=== PATIENT | female | born 1960 | race Caucasian/White ===

== ENCOUNTER → 2019-07-07 14:29 | Outpatient (CLI) | payer OTHER, SELFPAY ==
--- NOTE | ~2019-07-07 | MM_ITS ---
EXAMINATION: MM screening yeison BI w lauren HISTORY: Screening mammogram TECHNIQUE: Craniocaudal and mediolateral oblique 3-D tomosynthesis images were obtained and synthetic 2-D images were generated. CAD analysis was submitted and interpreted. COMPARISON: No prior mammogram is available for comparison at this institution. BREAST PARENCHYMAL COMPOSITION: There are scattered areas of fibroglandular density. FINDINGS: There is no evidence of suspicious mass, calcification, or architectural distortion to sugg est malignancy in either breast. There has been no suspicious interval change. IMPRESSION: 1. No mammographic evidence of malignancy. 2. Recommend routine screening mammography in one year. BI-RADS Category 1: Negative Reviewed, dictated and finalized at location A.
== END ==
PROVIDERS: PCP Family Medicine; Visit Provider Family Medicine
DX: Z12.31 Encounter for screening mammogram for malignant neoplasm of breast (principal)
CPT/HCPCS: 77063; 77067

== ENCOUNTER 2020-03-30 02:02 | Outpatient (CLI) | payer OTHER, SELFPAY ==
[2020-03-30 18:46] LABS: SARS-CoV-2 RNA PCR Negative
== END 2020-03-30 02:03 | disposition home or self-care (01) ==
LOC: ANHCOVIDDT 02:03
PROVIDERS: PCP Family Medicine; Visit Provider Internal Medicine Gastroenterology
DX: Z20.828 Contact with and (suspected) exposure to other viral communicable diseases (principal)
CPT/HCPCS: 87635; C9803; U0003

== ENCOUNTER 2020-04-02 00:43 | Day surgery (SDC) | payer OTHER, SELFPAY ==
[2020-03-26 08:32] VITALS: BMI 26.9
[2020-04-02 10:09] VITALS: BP 128/88; PULSE 73; RESP 20; TEMP 36.7; O2SAT 98; BMI 26.9
[2020-04-02] MEDS: LACTATED RINGERS 1,000 ML 150 ML IV CONT (10:24)
--- NOTE | 2020-04-02 10:46 | WPDANESEPPF ---
Anes - Initial Pre Proc Eval Procedure: Operation Date: 04/02/20 11:00 Proposed Procedures p Screening Colonoscopy - Kvng Freeman MD Date/Time: 04/02/20 10:46 Surgeon: Kvng Freeman MD Pre Op Diagnosis: neoplasm screening Patient Data Age: 59 Gender: F Height: 5 ft 7 in Weight: 78 kg Last Vital Signs Temp 36.7 C 04/02/20 10:09 Pulse 73 04/02/20 10:09 Resp 20 04/02/20 10:09 BP 128/88 04/02/20 10:09 Pulse Ox 98 04/02/20 10:09 Allergies Allergy/AdvReac Type Severity Reaction Status Date / Time No Known Allergies Allergy Verified 04/02/20 10:08 Home Medications Medication Instructions Recorded Confirmed Type peg 3350-electrolytes 236 240 ml PO Q10M #4000 ml 02/14/20 Rx gram-22.74 gram-6.74 gram-5.86 gram solution sodium,potassium,mag sulfates 17.5 See Rx Instructions PO .COMPLEX 02/27/20 Rx gram-3.13 gram-1.6 gram oral soln #354 ml triamcinolone acetonide 1 applic TOPICAL BID PRN 03/26/20 03/26/20 History Patient hx anesthesia problems: none Family hx anesthesia problems: none PMFSH Past Medical History Medical History Chronic neck and back pain Eczema Essential (primary) hypertension controlled after losing weight History of colon polyps Major depressive disorder, recurrent episode, unspecified Surgical History Surgical History History of cholecystectomy 06/2001 Family History Family History Father Family history of lung cancer, Onset Age: 73 Mother Family history of coronary artery disease, Onset Age: 63 Social History Social History Smoking status: Never smoker Second hand tobacco smoke exposure: No Alcohol intake: current Substance use: never Substance use type: does not use Living arrangements: alone Spiritual care concerns: No Anes - Eval Final PreProcedure Day of Procedure 04/02/20 10:46 Patient weight: overweight Heart: regular rate and rhythm Lungs: clear to auscultation Airway: Mallampati scale class II Neurological: alert and oriented Last oral intake: >/= 8 hours ASA classification: II Emergent: no Anesthetic plan: proceed Anesthesia type and monitoring: general GIVS and standard monitoring Informed Consent: The patient's anesthetic plan and its attendant risks and benefits were discussed with the patient/family/POA. Questions were solicited and answers provided to the satisfaction of the patient/family/POA.
--- NOTE | 2020-04-02 11:45 | PM.HPGS ---
History of Present Illness History of Present Illness Consent: Risks, benefits, and alternatives have been discussed and questions answered. Patient agrees to proceed with procedure. Chief complaint: neoplasm screening Narrative: Farnaz Stoner is a 59 year old female here for screening colonoscopy, last one 2013 Review of Systems Constitutional: Constitutional: Denies headache(s) and Denies weakness Eyes: Eyes: Denies blurry vision ENT: Reports Normal hearing present, Denies headache(s) and Denies neck pain Cardiovascular: Cardiovascular: Denies chest pain and Denies dyspnea Respiratory: Respiratory: Denies dyspnea Gastrointestinal: Gastrointestinal: Reports no additional gastrointestinal complaints Genitourinary: Genitourinary: Denies dysuria Musculoskeletal: Musculoskeletal: Denies neck pain Integumentary/Breasts: Skin/Breast: Denies dry skin Neurologic: Reports Normal hearing present, Denies headache(s) and Denies weakness Psychiatric: Psychiatric: Denies anxiety Endocrine: Endocrine: Denies change in body appearance Hematologic/Lymphatic: Hematologic/Lymphatic: Denies easy bleeding Allergic/Immunologic: Allergic/Immunologic: Denies urticaria PMFSH Past Medical History Medical History Chronic neck and back pain Eczema Essential (primary) hypertension controlled after losing weight History of colon polyps Major depressive disorder, recurrent episode, unspecified Surgical History Surgical History History of cholecystectomy 06/2001 Family History Family History Father Family history of lung cancer, Onset Age: 73 Mother Family history of coronary artery disease, Onset Age: 63 Social History Social History Smoking status: Never smoker Second hand tobacco smoke exposure: No Alcohol intake: current Substance use: never Substance use type: does not use Living arrangements: alone Spiritual care concerns: No Meds Home Medications and Allergies Home Medications Medication Instructions Recorded Confirmed Type peg 3350-electrolytes 236 240 ml PO Q10M #4000 ml 02/14/20 Rx gram-22.74 gram-6.74 gram-5.86 gram solution sodium,potassium,mag sulfates 17.5 See Rx Instructions PO .COMPLEX 02/27/20 Rx gram-3.13 gram-1.6 gram oral soln #354 ml triamcinolone acetonide 1 applic TOPICAL BID PRN 03/26/20 03/26/20 History Allergies Allergy/AdvReac Type Severity Reaction Status Date / Time No Known Allergies Allergy Verified 04/02/20 10:08 Vital Signs Vital Signs - 24 hr 04/02/20 10:09 Temperature 98.1 F Pulse Rate 73 Respiratory Rate 20 Blood Pressure 128/88 Pulse Oximetry 98 Exam Const: General: comfortable and no acute distress HENMT: General nose exam: Normal nares present Eyes: General: appearance normal, both eyes and all related structures Neck: Neck: no JVD Resp: Auscultation: clear to auscultation bilaterally Cardio: Rate: regular rate Rhythm: regular rhythm GI: Inspection: non-distended GI Palp: Yes Soft to palpation Skin: General skin exam: normal color Neuro: General: gait normal Speech: normal speech Extrem: General: normal to inspection Psych: Mental Status: mental status grossly normal Assessment and Plan Assessment and plan (1) Colon cancer screening: Code(s): Z12.11 - Encounter for screening for malignant neoplasm of colon Status: Acute Assessment and Plan: will proceed with colonoscopy
[2020-04-02 12:04] VITALS: BP 94/56; PULSE 71; RESP 21; O2SAT 99
[2020-04-02 12:14] VITALS: BP 102/62; PULSE 68; RESP 21; O2SAT 100
[2020-04-02 12:24] VITALS: BP 119/79; PULSE 70; RESP 21; O2SAT 100
== END 2020-04-02 12:34 | disposition home or self-care (01) ==
PROVIDERS: PCP Family Medicine; Visit Provider Internal Medicine Gastroenterology
PROC: 0DJD8ZZ Inspection of Lower Intestinal Tract, Via Natural or Artificial Opening Endoscopic (ICD-10-PCS; CPT 45378; principal; 2020-04-02 11:00)
DX: Z12.11 Encounter for screening for malignant neoplasm of colon (principal); D12.2 Benign neoplasm of ascending colon; L30.9 Dermatitis, unspecified; F32.9 Major depressive disorder, single episode, unspecified; Z90.49 Acquired absence of other specified parts of digestive tract; K64.8 Other hemorrhoids; K57.30 Diverticulosis of large intestine without perforation or abscess without bleeding
CPT/HCPCS: 45380; 88305; J2704; J7120

== ENCOUNTER → 2020-08-27 16:54 | Outpatient (CLI) | payer OTHER, SELFPAY ==
--- NOTE | ~2020-08-27 | MM_ITS ---
EXAMINATION: MM screening yeison BI w lauren HISTORY: Screening mammogram TECHNIQUE: Craniocaudal and mediolateral oblique 3-D tomosynthesis images were obtained and synthetic 2-D images were generated. CAD analysis was submitted and interpreted. COMPARISON: 07/07/2019 BREAST PARENCHYMAL COMPOSITION: The breasts are heterogeneously dense, which may obscure small masses . FINDINGS: RIGHT BREAST: There are grouped indeterminate calcifications in the posterior third of the upper oute r quadrant breast. An asymmetry is present in the middle third of the slightly outer breast on the cr aniocaudal view. LEFT BREAST: There is no evidence of suspicious mass, calcification, or architectural distortion to s uggest malignancy. There has been no significant interval change. IMPRESSION: 1. Right breast asymmetry and indeterminate right breast calcifications. 2. Additional mammographic views and possible breast ultrasound are recommended. BI-RADS Category 0: Incomplete: Needs additional imaging evaluation. Reviewed, dictated and finalized at location A. IMPRESSION: 1. Right breast asymmetry and indeterminate right breast calcifications. 2. Additional mammographic views and possible breast ultrasound are recommended . BI-RADS Category 0: Incomplete: Needs additional imaging evaluation.
== END ==
PROVIDERS: PCP Family Medicine
DX: Z12.31 Encounter for screening mammogram for malignant neoplasm of breast (principal); R92.8 Other abnormal and inconclusive findings on diagnostic imaging of breast
CPT/HCPCS: 77063; 77067

== ENCOUNTER → 2020-09-25 08:47 | Outpatient (CLI) | payer OTHER, SELFPAY ==
--- NOTE | ~2020-09-25 | MMUS_ITS ---
EXAMINATION: MM diagnostic mammo unilat RT, US breast RT complete HISTORY: Right breast asymmetry and indeterminate right breast calcifications reported on 08/27/2020 s creening mammogram examination TECHNIQUE: Additional 3-D tomosynthesis images of the right breast were performed and synthetic 2-D i mages were generated. Magnification views of right breast. CAD analysis was submitted and interpreted . High resolution complete right breast ultrasound was performed. COMPARISON: 08/27/2020, 07/07/2019 bilateral digital screening mammogram examinations FINDINGS: MAMMOGRAPHIC FINDINGS: A cluster grouped benign-appearing fibroadenoma-like microcalcifications is noted in the upper outer quadrant of the right breast posteriorly. Occasional benign microcalcifications are noted elsewhere. No suspicious microcalcifications are noted. Possible small mass and associated focal architectural distortion in the outer mid right breast (ML T omosynthesis image ). The heterogeneously dense stroma may obscure masses. Complete right breast ultrasound examination therefore was performed. ULTRASOUND: 9:00 4 cm from nipple: There is an irregular hypoechoic up to 3.4 mm mass. Ultrasound-guided biopsy i s recommended. 8:00 4.5 cm from nipple: Irregular antiparallel hypoechoic up to 5 mm deep 5 mm wide mass with Tornad o funnell cloud configuration and posterior shadowing is noted. Consecutive biopsy is recommended. Dense tissue is noted at 10:00 area without opacification of a focal mass lesion. IMPRESSION: 1. Suspicious hypoechoic sonographic masses at right breast 8:00 4.5 cm from nipple and 9:00 4 cm fro m nipple 2. Ultrasound-guided biopsy of right breast 8:00 and 9:[address] Menon telephoned the report and ultrasound guided biopsy recommendations on 09/25/2020 at 1005 hours to Rebecca Almaguer. Reviewed, dictated and finalized at location A. IMPRESSION: 1. Suspicious hypoechoic sonographic masses at right breast 8:00 4.5 cm from ni pple and 9:00 4 cm from nipple 2. Ultrasound-guided biopsy of right breast 8:00 and 9:[address] Menon telephoned the report and ultrasound guided biopsy recommendations on 09/25/2020 at 1005 hours to [facility].
== END ==
PROVIDERS: Visit Provider Nurse Practitioner Family
DX: N63.11 Unspecified lump in the right breast, upper outer quadrant (principal); R92.8 Other abnormal and inconclusive findings on diagnostic imaging of breast
CPT/HCPCS: 76641; 77065

== ENCOUNTER 2020-10-09 08:52 | Outpatient (CLI) | payer OTHER, SELFPAY ==
--- NOTE | ~2020-10-09 | MMUS_ITS ---
EXAMINATION: US GUIDED NEEDLE BIOPSY DATE: 10/09/2020 10:49 CDT INDICATION: Irregular hypoechoic lesions at 9:00 4 cm from nipple and 8:00 4.5 cm from nipple on 2020 20 right breast ultrasound examination TECHNIQUE AND FINDINGS: The risks and potential benefits of the procedure were discussed with the patient, and written inform ed consent was obtained. Timeout procedure was performed. After sterile preparation of the right debbie st, 1% lidocaine was utilized for local anesthesia. A 14G spring-loaded biopsy gun needle was advanced to the edge of each of 2 regions of interest (8:00 and 9:00) from a lateral approach utilizing sonographic guidance. A total of 5 tissue core samples were obtained through the 2 lesions. An Inrad tissue marker clip was then placed at each of the 2 bi opsy sites. Hemostasis was achieved. A sterile bandage was applied. The patient tolerated procedure well and there was no evidence of immediate complication. The patien t was given verbal instructions prior to departing from the department. A two view mammogram was perf ormed to document tissue marker clip placement. The tissue samples were submitted to surgical patholo gy for histologic analysis. IMPRESSION: 1. Successful ultrasound guided biopsy of right 8:00 and 9:00 breast masses with biopsy marker place ments. Please refer to pathology report for histologic analysis. Reviewed, dictated and finalized at Location A. Reviewed, dictated and finalized at location A. IMPRESSION: 1. Successful ultrasound guided biopsy of right 8:00 and 9:00 breast masses wi th biopsy marker placements. Please refer to pathology report for histologic an alysis. IMPRESSION: 1. Successful ultrasound guided biopsy of right 8:00 and 9:00 breast masses wi th biopsy marker placements. Please refer to pathology report for histologic an alysis.
== END 2020-10-09 08:53 | disposition home or self-care (01) ==
PROVIDERS: PCP Family Medicine; Visit Provider Nurse Practitioner Family
DX: C50.811 Malignant neoplasm of overlapping sites of right female breast (principal)
CPT/HCPCS: 19083; 19084; 88305; 88342; 88360; A4648

== ENCOUNTER → 2020-11-30 03:08 | Outpatient (CLI) | payer BC, SELFPAY ==
[2020-12-01 01:32] LABS: SARS-CoV-2 RNA PCR Negative
== END ==
PROVIDERS: PCP Family Medicine
DX: Z20.822 Contact with and (suspected) exposure to COVID-19 (principal); R09.89 Other specified symptoms and signs involving the circulatory and respiratory systems
CPT/HCPCS: C9803; U0003; U0005

== ENCOUNTER 2022-03-09 14:18 | Emergency (ER) | payer BC, SELFPAY ==
[2022-03-09 14:36] VITALS: BP 133/89; PULSE 84; RESP 16; TEMP 37.6; O2SAT 97
--- NOTE | 2022-03-09 14:58 | ED.EYEPROB ---
HPI - Eye Problem General Chief complaint: Eye Problems Stated complaint: rt eye irritation Time Seen by Provider: 03/09/22 14:48 Source: patient Mode of arrival: ambulatory Limitations: no limitations History of Present Illness HPI Narrative: Patient presents today complaining of right eye irritation and foreign body sensation since yesterday after she got a haircut. Denies vision changes, photophobia, drainage. She has used some [id number] eye drops without relief. She does not wear contacts or glasses Related Data Home Medications Medication Instructions Recorded Confirmed exemestane 25 mg tablet 25 mg PO DAILY 06/05/21 03/09/22 alendronate 70 mg tablet 70 mg PO WEEKLY 03/04/22 03/09/22 Allergies Allergy/AdvReac Type Severity Reaction Status Date / Time No Known Allergies Allergy Verified 03/09/22 14:34 Review of Systems Review of Systems: CONSTITUTIONAL: Denies body aches, fever, chills, or sweats. EYES: Denies visual changes, redness, or discharge.+ Right eye irritation and foreign body sensation ENT: Denies rhinorrhea, congestion, sore throat, or otalgia. CARDIOVASCULAR: Denies chest pain, palpitations, or edema. RESPIRATORY: Denies cough or dyspnea. GASTROINTESTINAL: Denies abdominal pain, nausea, vomiting, or diarrhea. GENITOURINARY: Denies dysuria or hematuria. SKIN: Denies rash, itching, or wounds. MUSCULOSKELETAL: Denies back pain, joint pain, or myalgia. NEUROLOGIC: Denies headache, numbness, tingling, or weakness. PSYCH: Denies depression or anxiety. [facility] Past Medical History Medical History Age related osteoporosis Chronic neck and back pain Eczema Essential (primary) hypertension History of colon polyps Invasive lobular carcinoma of breast, stage 1 Major depressive disorder, recurrent episode, unspecified Vitamin D deficiency Surgical History Surgical History History of cholecystectomy 06/2001 History of lumpectomy of right breast 11/2020 Family History Family History Father Family history of lung cancer, Onset Age: 73 Mother Family history of coronary artery disease, Onset Age: 63 Social History Social History Smoking status: Never smoker Second hand tobacco smoke exposure: No Alcohol intake: current Alcohol use details: socially Substance use: never Substance use type: does not use Lack of Transportation: No Lack of Food: Never True Current Housing: I Have Housing Concerned About Future Housing: No Difficulty Paying Gas/Electric Bills: No Difficulty Paying for Meds: No Currently Unemployed: No Education: Bachelor's Degree Difficulty w/ Childcare or Family Care: No 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 Please see nursing chart for further information. There is no relevant family history pertinent to the presenting complaint Exam Narrative: GENERAL: Well-appearing, well-nourished, and in no acute distress. HEAD: Normocephalic, atraumatic. EYES: EOMI. PERRL. right eye: Injected conjunctivae. Lids and lashes normal. See procedure note. left eye normal ENT: Mucous membranes pink and moist. NECK: Normal AROM. CHEST: No respiratory distress. EXTREMITIES: Normal range of motion. No edema. SKIN: Warm, dry, no rash. Capillary refill normal. Normal skin turgor. NEURO: No focal deficits. Alert and oriented x3. Gait steady. PSYCH: Normal affect.
== END 2022-03-09 15:10 | disposition home or self-care (01) ==
PROVIDERS: Emergency Provider Nurse Practitioner; PCP Family Medicine
DX: S05.01XA Injury of conjunctiva and corneal abrasion without foreign body, right eye, initial encounter (principal); X58.XXXA Exposure to other specified factors, initial encounter; I10 Essential (primary) hypertension; L30.9 Dermatitis, unspecified; Z85.3 Personal history of malignant neoplasm of breast; E55.9 Vitamin D deficiency, unspecified
CPT/HCPCS: 99213; A9270; G0463

== ENCOUNTER 2025-01-16 01:15 | Day surgery (SDC) | payer BC, SELFPAY ==
--- OUTSIDE RECORDS SUMMARY | 2017-04-01 13:00 | XMS_ITS | Continuity of Care Document ---
Author Organization [facility] [place] Address [address] [place] [address] [address] [place] [address] Phone Care Team Providers Care Loan Approver Name Role Phone Clyde Rosenbaum Unavailable Unavailable [...] Diagnoses Date Provider Providers Copied on Encounter [facility] [address], [id number], tel:[phone] [place] No Information Mar- 3 7 Muehl Clyde. [address] [facility], [address], [place], [facility], . tel:[phone] Referring Provider: Yrn Latham, [address], [place], [address]. tel:[phone] [facility] [address], [id number], tel:[phone] [place] No Information Mar-0 6 7 Evi Barnett . Referring Provider: [address], [place], [address]. tel:[phone] [facility] [address], [id number], tel:[phone] [place] No Information 0 7 Evi Barnett . Referring Provider: [address], [place], [address]. tel:[phone] [facility] [address], [id number], tel:[phone] [place] No Information 7 Muehl Clyde. [address] [place] [address], [address], [place], [facility], [place]. tel:[phone] Referring Provider: [address], [place], [address]. tel:[phone] [facility], [id number], tel:[phone] [place] No Information 7 Muehl Clyde. [address] [place] [address] [address], [place], [place], [facility], [place]. tel:[phone] Referring Provider: [address], [place], [address]. tel:[phone], [id number], tel:[phone] [place] No Information 2-201 7 Johnnyehl Clyde. [address] [place] [address], [address], [place], [facility], [place]. tel:[phone] Referring Provider: [address], [place], [address]. tel:[phone], [id number], tel:[phone] [place] No Information 0-201 7 Alin Tang. [address] [place] [address], [address], [place], [facility], [place]. tel:[phone] Referring Provider: [address], [place], [address]. tel:[phone], [id number], tel:[phone] [place] No Information 5-201 7 Alin Tang. [address] [place] [address], [address], [place], [address], [place]. tel:[phone] Referring Provider: [address], [place], [address]. tel:[phone], [id number], tel:[phone] [place] No Information 3-201 7 Alin Tang. [address] [place] [address], [address], [place], [place], [facility], [place]. tel:[phone] Referring Provider: [address], [place], [address]. tel:[phone] [facility] [place], [address] [facility] [address], [place], [place], [id number], tel:[phone] [place] CervicalgiaTo rticollisPare sthesia of skinRadiculop athy, cervical region 201 7 Evi Bah. . Referring Provider: [address], [place], [address]. tel:[phone] Family History Family Member Type Diagnosis Age At Onset No Information Payers Payer name Insurance type Covered constitution party ID Rai osman(s) [facility] [id number] Social History Type Description Quantity Date Captured [...]
[2025-01-04 10:15] VITALS: BMI 30.2
--- NOTE | 2025-01-04 10:20 | PC.NURSE ---
Report to the Outpatient Waiting Room, entrance under the green pavilion located off [facility], at time 0900 on date 01/16/25 . Planned Procedure Time: 1100. Time changes happen often and if your time is changed the preop area will call you the afternoon before. - You and your visitor will be asked to self-screen and do not enter if you have any COVID symptoms. Please call surgeon if you need to reschedule. - A mask is optional within the hospital at this time. Patients may have clear liquids (water, carbonated beverages, clear teas, apple juice) until 3 hours prior to surgery with a maximum of 20 ounces. - No food from midnight until time of surgery and no smoking, or chewing tobacco (or any form of nicotine). No chewing gum, candy or mints. - Infants may have breast milk until 4 hours before surgery, formula 6 hours prior to surgery. - Children will be allowed to drink immediately following surgery.? If applicable, please bring a bottle or sippy cup to assist with drinking. Juice, water, soda, and popsicles are readily available.? For infants on formula, please bring formula the day of surgery.? Pacifiers are allowed. Take only the following medications with a SIP of water on the morning of surgery: amlodipine, fluoxetine DO NOT STOP ANY OF YOUR OTHER PRESCRIPTION MEDICATIONS PRIOR TO SURGERY EXCEPT THE FOLLOWING Hold all vitamins and supplements for 3 days per anesthesiologist. Medications to discontinue per physician ____pt to take tamoxifen after surgery. all supplements and vitamins for 3 days prior to surgery Date to take last dose Please no make-up, nail wolof, hairspray, perfume, deodorant, or body powder the day of surgery.? No jewelry (including any body piercings) or valuables the day of surgery, leave them at home.? Please take a shower or bath the night before, or the morning of, surgery with an antibacterial soap.? Wear comfortable, loose fitting clothing.? Children are encouraged to wear pajamas. - Jewelry must be removed prior to entering the operating room.? Rings and piercings that are not removed may be cut off. - The hospital will not accept responsibility for valuables.? - Please leave all valuables, including medications, at home the day of surgery. If you are going home after surgery, a licensed delivery driver must drive you home.? - NO public transportation without another adult if you receive anesthesia. - We recommend that an adult stay with you for 24 hours following discharge. - We also recommend that you do not drive, make important decision, drink alcoholic beverages, or take any drugs that were not prescribed by your health care provider for at least 24 hours after your discharge time. For Pediatric surgeries, we recommend two adults accompany the child home. Follow any additional instructions given to you from your surgeon. Telephone instructions given to _patient_and asked if any additional questions and then verbalized understanding. Patient advised to call surgeon office or pre surgery nurse liaison [phone] if any additional questions.
--- NOTE | 2025-01-15 14:40 | PM.IMHP ---
H&P: HPI History of Present Illness Date/Time: 01/15/25 14:40 Chief Complaint: abnormal imaging Narrative: Farnaz is a postmenopausal 64yo P2002 who presented to my office for evaluation of possible prolapse. She has a normal pap 08/2024. She denies any PMB. No pelvic pain. She was diagnosed with stage 1 right breast cancer in 2020. She is s/p lumpectomy and radiation. She is on tamoxifen w/o issue. She has been sexually active; has some dryness even with OTC lubrication, but it's doing better. Noticed over the last two months, having significant bladder issues; increase in urinary frequency and nocturia. Thought she had cloudy urine for about a week, but that went away and she denied any dysuria. She feels like a tampon is partially out of place/bulge symptoms. She used a mirror and looked and feels like she can see extra tissue that she could not see before. Prior to scheduling combined case with Dr. Hamm, DANCING INSTRUCTOR US was ordered to verify no endometrial/uterine/ovarian abnormalities. On DANCING INSTRUCTOR US, her lining was found to be quite thickened at 14.4mm. Review of Systems Constitutional: Constitutional: Denies chills, Denies fever(s) and Denies headache(s) Eyes: Eyes: Denies change in vision ENT: Denies dizziness and Denies headache(s) Cardiovascular: Cardiovascular: Denies chest pain and Denies dyspnea Respiratory: Respiratory: Denies cough and Denies dyspnea Gastrointestinal: Gastrointestinal: Denies abdominal pain and Denies change in stool character Genitourinary: Genitourinary: Denies abnormal vaginal bleeding, Denies pelvic pain, Denies vaginal discharge, Denies vaginal odor and Denies vaginal pruritus Neurologic: Denies dizziness and Denies headache(s) Psychiatric: Psychiatric: Denies anxiety and Denies depression PMFSH Past Medical History Medical History Depression with anxiety Osteoporosis Vitamin B12 deficiency Breast cancer Age related osteoporosis Vitamin D deficiency Essential (primary) hypertension Invasive lobular carcinoma of breast, stage 1 History of colon polyps Chronic neck and back pain Eczema Major depressive disorder, recurrent episode, unspecified Surgical History Surgical History History of lumpectomy of right breast 11/2020 History of cholecystectomy 06/2001 Family History Family History Father Family history of lung cancer, Onset Age: 73 Mother Family history of coronary artery disease, Onset Age: 63 Social History Social History (Updated 11/17/24 @ 13:22 by Florin Guajardo MA) Smoking status: Never smoker Second hand tobacco smoke exposure: No Alcohol intake: current Alcohol use details: socially Substance use: never Substance use type: does not use Do You Feel Safe in your Home?: Yes Lack of Transportation: No Lack of Food: Never True Current Housing: I Have Housing Concerned About Future Housing: No Difficulty Paying Gas/Electric Bills: No Difficulty Paying for Meds: No Currently Unemployed: No Education: Bachelor's Degree Difficulty w/ Childcare or Family Care: No Living arrangements: with family Occupation/Education: retired 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 Gender identity (if verbalized by the patient): Female Sexual Orientation (if Verbalized by the Patient): Straight or Heterosexual Spiritual care concerns: No Meds Home Medications and Allergies Home Medications ?Medication ?Instructions ?Recorded ?Confirmed ?Type alendronate 70 mg tablet 70 mg PO WEEKLY 03/04/22 01/04/25 History tamoxifen 20 mg tablet 20 mg PO DAILY 08/24/23 01/04/25 History fluoxetine 10 mg capsule 10 mg PO DAILY #90 caps 03/07/24 01/04/25 Rx triamcinolone acetonide 0.1 % 1 applic topical BID PRN rash #30 03/07/24 01/04/25 Rx topical cream grams cyanocobalamin (vitamin B-12) 1,000 mcg sublingual 2XW #90 tabs 03/15/24 01/04/25 Rx 1,000 mcg sublingual tablet amlodipine 5 mg tablet 5 mg PO DAILY #90 tabs 05/06/24 01/04/25 Rx calcium carbonate (Calcium 500) 500 mg PO DAILY 01/04/25 01/04/25 History Allergies Allergy/AdvReac Type Severity Reaction Status Date / Time No Known Allergies Allergy Verified 01/04/25 10:13 Exam Const: General: cooperative, healthy appearing, comfortable and no acute distress Orientation/consciousness: patient oriented x3 Resp: Effort & Inspection: normal respiratory effort Cardio: Rate: regular rate GI: Inspection: normal to inspection GI Palp: No abdominal tenderness and Yes Soft to palpation : Other: deferred to OR Skin: General skin exam: normal color Neuro: General: patient oriented x3 Extrem: General: normal to inspection Psych: Appearance: grossly normal Affect: normal affect Attitude: cooperative Assessment and Plan Assessment and plan (1) Endometrial thickening on ultrasound: Code(s): R93.89 - Abnormal findings on diagnostic imaging of other specified body structures Status: Acute Plan - In preparation for combined case with Dr. Hamm for prolapse (would plan for robotic assisted supra-cervical hysterectomy with BSO and sacrocolpopexy); DANCING INSTRUCTOR US showed endometrial thickening of 14.4mm; in postmenopausal women, it should be less than 4mm - Due to possible spillage during supracervical hysterectomy, I recommended that we proceed with endometrial sampling - Proceed with hysteroscopy with D&C - Risks and benefits discussed in detail
--- OUTSIDE RECORDS SUMMARY | 2025-01-16 01:18 | XMS_ITS | Encounter Summary ---
Author Organization [facility] Address [address] [place] [address] Care Team Providers Care Peoplesoft Name Role Phone Sebastian Latham MD Primary Care Provider Encounter Details Date Type Department Care Team (Late Contact Info) Description 01/18/2002 Outpatient Historical HIS MAMM Mc Weeks MD [address] [place] [address] SCREENING MAMM-MAILG NEOPL-OTHER (Primary Dx) Social History Tobacco Use Types Packs/Day Years Used Date Smoking Tobacco: Never Assessed Comments Unknown Sex and Gender Information Value Date Recorded Sex Assigned at Female 03/02/2024 6:58 PM SETTER COLD ROLLING MACHINE Legal Sex Female 5:03 AM SETTER COLD ROLLING MACHINE Gender Identity Female 03/02/2024 6:58 PM SETTER COLD ROLLING MACHINE Sexual Orientation Not on file documented as of this encounter Plan of Treatment Upcoming Encounters Date Type Department Care Team (Late st Contact Info) Description 03/02/2025 8:30 AM SETTER COLD ROLLING MACHINE Office Visit [facility] David Espinoza [address] [address] [place] [id number] [address] 03/02/2025 9:00 AM SETTER COLD ROLLING MACHINE Appointment [facility] David Espinoza [address] [place] [address] [place] [address] [facility] [address] [place] [address] 03/02/2025 9:45 AM SETTER COLD ROLLING MACHINE Office Visit [facility] Breast Surgery David Espinoza [address] [facility] [address] [place] [address] [place] [address] [facility] [address] [place] [address] documented as of this encounter Visit Diagnoses Diagnosis Other screening mammogram- Primary documented in this encounter Care Teams Peoplesoft Relationship Specialty Start Date End Date Sebastian Latham MD [address] [place] [id number] PCP - General Family Practice 11/29/20 documented as of this encounter
--- OUTSIDE RECORDS SUMMARY | 2025-01-16 01:18 | XMS_ITS | Encounter Summary ---
Author Organization [facility] Address [address] [place] [address] Care Team Providers Care Broadcast Designer Name Role Phone Sebastian Latham MD Primary Care Provider Encounter Details Date Type Department Care Team (Late st Contact Info) Description 01/23/2003 Outpatient Historical HIS MAMM Elda Dow MD NO ADDRESS ON FILE SCREENING MAMM-MAILG NEOPL-OTHER (Primary Dx) Social History Tobacco Use Types Packs/Day Years Used Date Smoking Tobacco: Never Assessed Comments Unknown Sex and Gender Information Value Date Recorded Sex Assigned at Female 03/02/2024 6:58 PM PLASTERER ROUGH Legal Sex Female 5:03 AM PLASTERER ROUGH Gender Identity Female 03/02/2024 6:58 PM PLASTERER ROUGH Sexual Orientation Not on file documented as of this encounter Plan of Treatment Upcoming Encounters Date Type Department Care Team (Late Contact Info) Description 03/02/2025 8:30 AM PLASTERER ROUGH Office Visit [facility] Oncology and Hematology David Olga [address] [facility] [address] [place] [address] [place] [address] [facility] [address] [place] [address] 03/02/2025 9:00 AM PLASTERER ROUGH Appointment [facility] [place] [address] [place] [address] [place] [address] [facility] [address] [place] [address] 03/02/2025 9:45 AM PLASTERER ROUGH Office Visit [facility] Breast Surgery David Espinoza [address] [place] [address] [place] [address] [address] [place] [address] documented as of this encounter Visit Diagnoses Diagnosis Other screening mammogram- Primary documented in this encounter Care Teams Broadcast Designer Relationship Specialty Start Date End Date Sebastian Latham MD [address] [place] [address] PCP - General Family Practice 11/29/20 documented as of this encounter
--- OUTSIDE RECORDS SUMMARY | 2025-01-16 01:18 | XMS_ITS | Clinical Summary ---
Author Organization [facility] Address [address] [facility] [place] [address] Care Team Providers Care Skiver Sock Linings Name Role Phone Sebastian Latham MD Primary Care Provider Allergies No known active allergies Medications UNABLE TO FINDIndications :TWICE A WEEK 24 HOURS AT A TIME B12 PATCH Active alendronate (FOSAMAX) 70 mg tablet PLEASE SEE ATTACHED FOR DETAILED DIRECTIONS 2 Active amLODIPine (NORVASC) 5 mg tablet Take 1 tablet (5 mg total) by mouth daily 2 Active Intrarosa 6.5 mg insert INSERT 1 VAGINALLY 3 TIMES A WEEK 3 Active triamcinolone (KENALOG) 0.1 % cream APPLY TOPICALLY TWICE A DAY NEEDED FOR RASH 3 Active Active Problems Problem Noted Date Diagnosed Date 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 Cervical radiculopathy, chronic 07/04/2019 Chronic low back pain without sciatica 0 Episode of recurrent major depressive disorder 0 07/04/2019 Eczema 10/06/2017 Lateral epicondylitis of right elbow 10/06/2017 Obesity with body mass index 30 or greater 06/05 Weight gain 11/03/2014 Hypertension 09/02/2010 Overview (07/31/2017): Description: Hypertension Family History Medical History Relation Name Comments Hypertension Brother Family history of hypertension - (Added by TW Conv) Cancer Father Family history of cancer - (Added by TW Conv) Coronary artery disease Mother Fami ly history of coronary artery disease - (Added by TW Conv) Heart failure Mother Family history of heart failure - (Added by TW Conv) Sudden Cardiac Mother Family history of sudden cardiac - (Added by TW Conv) Coronary artery disease Sister 1 Fami ly history of coronary artery disease - (Added by TW Conv) Hypertension Sister 2 Family history of hypertension - (Added by TW Conv) Relation Name Status Comments Brother Father Mother Sister 1 Sister 2 Social History Tobacco Use Types Packs/Day Years Used Date Smoking Tobacco: Never Smokeless Tobacco: Never Tobacco Cessation:Counseling Given: Not Answered Comments Unknown Sex and Gender Information Value Date Recorded Sex Assigned at Not on file Legal Sex Female 5:29 AM TAVERN KEEPER Gender Identity Not on file Sexual Orientation Not on file Obstetrics History Last Filed Vital Signs Vital Sign Reading Time Taken Comments Blood Pressure 151/87 10/22/2022 11:08 AM CDT Pulse 79 10/22/2022 11:08 AM CDT Temperature 37.6 C (99.7 F) 10/22/2022 11:08 AM CDT Respiratory Rate 18 10/22/2022 11:08 AM CDT Oxygen Saturation 97% 10/22/2022 11:08 AM CDT Inhaled Oxygen Concentration - - Weight 87.7 kg (193 lb 4.8 oz) 10/22/2022 11:08 AM CDT Height 170.2 cm (5' 7.01) 10/22/2022 11:08 AM C DT Body Mass Index 30.27 10/22/2022 11:08 AM CDT Plan of Treatment Health Maintenance Due Date Last Done Comments Colon Cancer Screening-Colonoscopy 1961 Depression Screening 1961 Hepatitis C Screening 1961 DTaP/Tdap/Td Vaccine (1 - Tdap) 1972 Hepatitis B Screening 12/20/1979 Regular Well Visit/Exam 18-64 12/20/1979 Zoster Vaccine (1 of 2) 12/20/2011 Breast Cancer Screening-Mammogram 02/11/2018 02/11/2017 Cervical Cancer Screening 07/03/2020 07/04/2019 Covid-19 Vaccine ( season) 2024 08/29/2021, 02/15/2021, 06/25/2020, Additional history exists Influenza Vaccine (#1) 2024 , 02/07/2021, 01/12/2020 Pneumococcal vaccine <65 Aged Out No longer eligible based on patient's age to complete this topic Insurance [employer] [place] [employer] [facility] Care Teams Skiver Sock Linings Relationship Specialty Start Date End Date Sebastian Latham MD PCP - General 05/12/17
--- OUTSIDE RECORDS SUMMARY | 2025-01-16 01:18 | XMS_ITS | Clinical Summary ---
Author Organization [facility] Address [address] [place] [address] Phone Care Team Providers Care Recycling Collections Driver Name Role Phone Sebastian Latham MD Primary Care Provider Allergies No known active allergies Medications triamcinolone acetonide (KENALOG) 0.1 % Cream triamcinolone acetonide 0.1 % topical cream APPLY A THIN LAYER OF CREAM TOPICALLY TWICE DAILY TO AFFECTED AREA(S) ON HANDS AND LEGS Active amLODIPine (NORVASC) 5 mg tablet 1 Active tamoxifen (NOLVADEX) 20 mg tabletIndicati ons:Malignant neoplasm of lower-outer quadrant of right breast of female, estrogen receptor positive (CMS/HCC) take 1 tablet by mouth every day 90 Tablet 3 4 Active FLUoxetine (PROzac) 10 mg capsule Take 10 mg by mouth daily. Active hydrOXYzine HCL (ATARAX) 25 mg tablet Take 25 mg by mouth 3 times daily as needed for Itching. Active CYANOCOBALAMIN , VITAMIN B-12, ORAL Take by mouth. 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 Malignant neoplasm of lower- outer quadrant of right breast of female, estrogen receptor positive 10/23/2020 Overview (06/20/2021): Stage: Clinical T1 N0; pT1 N0 Date of diagnosis: 10/09/2020 Diagnosis: RIGHT 8 mm ILC, 0/2 LN ER positive AR positive HER-2 negative Surgeon: Venkatesh Surgery: 12/03/2020 right lump/SLN Medical Oncologist: Florinda Chemotherapy: none Radiation Oncologist: Lorna Barney) Radiation: Hormonal therapy: Letrozole 2.5mg daily - started 03/10 Cervical radiculopathy, chronic 07/04/2019 Chronic low back pain without sciatica 0 Episode of recurrent major depressive disorder 0 07/04/2019 Lateral epicondylitis 07/04/2019 Eczema 10/06/2017 Lateral epicondylitis of right elbow 10/06/2017 Obesity with body mass index 30 or greater 06/05 Weight gain 11/03/2014 Essential (primary) hypertension 09/02/2010 Overview (03/10/2024): Description: Hypertension Encounters Date Type Department Care Team Description 12/27/2024 External Device Data STL ABSTRACTION Provider, Abstract 12/20/2024 External Device Data STL ABSTRACTION Provider, Abstract 12/06/2024 External Device Data STL ABSTRACTION Provider, Abstract 12/06/2024 External Device Data STL ABSTRACTION Provider, Abstract 11/29/2024 External Device Data STL ABSTRACTION Provider, Abstract 11/23/2024 External Device Data STL ABSTRACTION Provider, Abstract 11/02/2024 External Device Data STL ABSTRACTION Provider, Abstract 11/01/2024 External Device Data STL ABSTRACTION Provider, Abstract from Last 3 Months Immunizations Immunization Administration Dates Next Due (AwesomePiece)(12 YR UP) COVID-19 VACCINE - EMERGENCY USE AUTHORIZATION, MRNA, [id number]) 30 MCG/0.3 ML IM SUSP 06/25/2020,05/28/2020 Family History Medical History Relation Name Comments Cancer Brother 1 Angel Stoner Bladder cancer Heart Disease Brother 1 Angel Stoner Heart Disease Brother 2 Yang Stoner Stroke Brother 2 Yang Stoner Heart Disease Brother 3 Alex Stoner Heart Disease Brother 4 Harley Stoner Cancer - Other Brother 5 Angel Stoner Bladder cance r Cancer - Other Father George Stoner Lung Cancer Lung Cancer Father George Stoner Heart Disease Mother Greg Stoner Hypertension Sister Mariela Beasley Melanoma Sister Mariela Beasley Breast Cancer Neg Hx Ovarian Cancer Neg Hx Relation Name Status Comments Brother 1 Angel Stoner Brother 2 Yang Stoner Brother 3 Alex Stoner Brother 4 Harley Stoner Brother 5 Angel Stoner Father George Stoner Mother Greg Stoner Sister Mariela Beasley Social History Tobacco Use Types Packs/Day Years Used Date Smoking Tobacco: Never Smokeless Tobacco: Never Tobacco Cessation:Counseling Given: Not Answered Alcohol Use Standard Drinks/Week Comments Yes 5 (1 standard drink = 0.6 oz pur e alcohol) Socially, not every week Feeling Safe Answer Date Recorded Do you worry about feeling s afe and happy with the people in your life? No 09/08/2024 Comments No Sex and Gender Information Value Date Recorded Sex Assigned at Female 03/02/2024 6:58 PM CHIEF COMPLIANCE OFFICER Legal Sex Female 5:03 AM CHIEF COMPLIANCE OFFICER Gender Identity Female 03/02/2024 6:58 PM CHIEF COMPLIANCE OFFICER Sexual Orientation Not on file Occupation Industry Job Start Date Job End Date Not on file Not on file Not on file Not on file Last Filed Vital Signs Vital Sign Reading Time Taken Comments Blood Pressure 131/78 09/08/2024 12:49 PM CDT Pulse 73 09/08/2024 12:49 PM CDT Temperature 36.9 C (98.5 F) 09/08/2024 12:49 PM CDT Respiratory Rate 14 12/03/2020 1:00 PM CDT Oxygen Saturation 97% 09/08/2024 12:49 PM CDT Inhaled Oxygen Concentration - - Weight 90.3 kg (199 lb 1.6 oz) 09/08/2024 12:49 PM CDT Height 170.2 cm (5' 7) 09/08/2024 12:49 PM CDT Body Mass Index 31.18 09/08/2024 12:49 PM CDT Plan of Treatment Upcoming Encounters Date Type Department Care Team (Late st Contact Info) Description 03/02/2025 8:30 AM CHIEF COMPLIANCE OFFICER Office Visit [facility] Oncology and Hematology David Espinoza [address] [place] [address] [place] [address] [facility] [address] [place] [address] 03/02/2025 9:00 AM CHIEF COMPLIANCE OFFICER Appointment [facility] Breast [place] David Espinoza [address] [place] [phone] [place] [address] [facility] [address] [place] [address] 03/02/2025 9:45 AM CHIEF COMPLIANCE OFFICER Office Visit [facility] Breast Surgery [facility]inoza [address] [facility] [address] [place] [address] [place] [address] [facility] [address] [place] [address] Health Maintenance Due Date Last Done Comments Pre-Diabetes and Diabetes Screening 1961 DTAP/TDAP/TD VACCINES (1 - Tdap) 1980 HPV/Cotest (21-29) 1982 HPV/Cotest (30-65) 12/20/1991 COLORECTAL SCREENING 2006 Colorectal Cancer Screening 2006 FIT-DNA Q 3 years 2006 FIT/FOBT Q 1 year 2006 Flex Sig/CT Colonography Q 5 years 2006 ZOSTER VACCINE (1 of 2) 12/20/2011 CERVICAL CANCER SCREENING 07/03/2022 PAP SMEAR 07/03/2022 07/04/2019 INFLUENZA VACCINE (#1) 2024 COVID-19 Vaccine (3 - 2024-2 6 season) 2024 06/25/2020, 05/28/2020 BREAST CANCER SCREENING 02/25/2025 02/26/20 24, 02/12/2023, 01/16/2022, Additional history exists RSV VACCINE (60+ or ) (1 - 1-dose 75+ series) 2036 Medical Devices Implanted Type Area Service Restorer Emergency Device Identifier Shelf Expiration Date Model / Serial / Lot Television Engineering Teacher Clip Surgiclip Ii Mauri 9.75in [id number] - [id number] Implanted:Qty: 1 on 12/03/2020 by Tammy Riddle MD at [facility] Services David Espinoza Clip Right: Axilla [employer] - COVIDIEN 07/18/2025 [id number] / / [id number] Procedures Procedure Name Priority Date/Time Associated Diagnosis Comments MAMMO 3D CHEY DIAGNOSTIC BILAT W OR WO CAD Routine 02/26/2024 1:04 PM CHIEF COMPLIANCE OFFICER Malignant neoplasm of lower-outer quadrant of right breast of female, estrogen receptor positive (CMS/HCC) from Last 3 Months or Most Recently Relevant to Health Maintenance Results * MAMMO DIAG BILAT 3D CHEY W OR WO CAD (02/26/2024 1:04 PM CHIEF COMPLIANCE OFFICER) Anatomical Region Laterality Modality Breast Bilateral Mammography 02/26/2024 1:04 PM CHIEF COMPLIANCE OFFICER Impressions 02/26/2024 1:46 PM CHIEF COMPLIANCE OFFICER IMPRESSION: No suspicious finding within either breast. Annual mammography recommended. BI-RADS Category 2: Benign findings. Yessenia Arellanoson Narrative 02/26/2024 1:46 PM CHIEF COMPLIANCE OFFICER EXAM: BILATERAL DIGITAL DIAGNOSTIC MAMMOGRAPHY WITH TOMOSYNTHESIS AND CAD EXAM DATE: 02/26/2024 INDICATION: Personal history of right breast cancer status post right breast conservation therapy. No current breast complaint. COMPARISON: 02/12/2023 mammography and older. BREAST COMPOSITION: Heterogeneously dense. FINDINGS: Redemonstration of the right breast conservation therapy changes. There are no suspicious masses or calcifications within either breast. There has been no significant interval change since the most recent mammograms. Procedure Note Shweta Roberts MD - 02/26/2024 EXAM: BILATERAL DIGITAL DIAGNOSTIC MAMMOGRAPHY WITH TOMOSYNTHESIS AND CAD EXAM DATE: 02/26/2024 INDICATION: Personal history of right breast cancer status post right breast conservation therapy. No current breast complaint. COMPARISON: 02/12/2023 mammography and older. BREAST COMPOSITION: Heterogeneously dense. FINDINGS: Redemonstration of the right breast conservation therapy changes. There are no suspicious masses or calcifications within either breast. There has been no significant interval change since the most recent mammograms. IMPRESSION: No suspicious finding within either breast. Annual mammography recommended. BI-RADS Category 2: Benign findings. Yessenia Espinoza Tammy Riddle MD MAMMO ORDERABLES Final Result from Last 3 Months or Most Recently Relevant to Health Maintenance Insurance [facility] [employer] Care Teams Recycling Collections Driver Relationship Specialty Start Date End Date Sebastian Latham MD [address] [place] [phone] PCP - General Family Practice 11/29/20
--- OUTSIDE RECORDS SUMMARY | 2025-01-16 01:18 | XMS_ITS | Clinical Summary ---
Author Organization [facility] Address [address] [facility] [place] [address] Care Team Providers Care Talend Etl Developer Name Role Phone Sebastian Latham MD Primary Care Provider Source Comments [facility],non-owned Affiliates and Associated Physician Practices is amultiple site organization consisting of ambulatory clinics and hospital sitesin [place], [place], [place] and [place]. This disclosure is being madepursuant to the Care Everywhere program and may not contain all information available regarding this patient. Last updated 18.[facility] Allergies No known active allergies Medications * Be aware that medications may not be up to date on this document. Alwaysverify current medications with the patient. amLODIPine (NORVASC) 5 MG tablet 7 Active triamcinolone acetonide (KENALOG) 0.1 % cream Apply 0.1 applicators to affected area as needed 8 Active Active Problems Problem Noted Date Diagnosed Date Cervical radiculopathy, chronic 07/04/2019 Chronic low back pain without sciatica 0 Episode of recurrent major depressive disorder 0 07/04/2019 Essential (primary) hypertension 07/04/2019 Lateral epicondylitis 07/04/2019 Eczema 10/06/2017 Lateral epicondylitis of right elbow 10/06/2017 Family History Medical History Relation Name Comments Cancer - Lung Father CAD (Coronary Artery Disease) Mother Relation Name Status Comments Father Mother Social History Tobacco Use Types Packs/Day Years Used Date Smoking Tobacco: Never Smokeless Tobacco: Never Alcohol Use Standard Drinks/Week Comments Yes 5 (1 standard drink = 0.6 oz pur e alcohol) Comments No Sex and Gender Information Value Date Recorded Sex Assigned at Not on file Legal Sex Female 5:22 PM SPOOL MAKER Gender Identity Not on file Sexual Orientation Not on file Last Filed Vital Signs Vital Sign Reading Time Taken Comments Blood Pressure 136/88 07/04/2019 8:39 AM CDT Pulse - - Temperature - - Respiratory Rate - - Oxygen Saturation - - Inhaled Oxygen Concentration - - Weight 84.4 kg (186 lb) 07/04/2019 8:39 AM CDT Height 170.2 cm (5' 7) 07/04/2019 8:39 AM CDT Body Mass Index 29.13 07/04/2019 8:39 AM CDT Plan of Treatment Health Maintenance Due Date Last Done Comments COLOGUARD (AGES 45-75) - COL ON CA SCREENING 1961 COLON MONITORING 1961 COLONOSCOPY - COLON CA SCREENING 1961 CT COLONOGRAPHY - COLON CA SCREENING 1961 Colorectal Cancer Screening 1961 FIT - COLON CA SCREENING 1961 FLEX SIG - COLON CA SCREENING 1961 LIPID TESTING 1961 MAMMOGRAM 1961 HIV SCREENING 1976 HEPATITIS C SCREENING 12/15/1979 DTAP/TDAP/TD VACCINES (1 - Tdap) 1980 PNEUMOCOCCAL VACCINE 50+ (1 of 1 - PCV) 12/20/2011 ZOSTER VACCINE (1 of 2) 12/20/2011 SCREENING FOR DIABETES 07/04/2019 DEPRESSION SCREENING 04/20/2024 PAP with HPV 07/03/2024 07/04/2019 COVID-19 VACCINE (1 - 2023-2 5 season) 2024 INFLUENZA VACCINE (#1) 2024 Respiratory Syncytial Virus (RSV) Vaccine Pt: or over 60 yrs (1 - 1-dose 75+ series) 2036 HEPATITIS B VACCINE Aged Out No longe r eligible based on patient's age to complete this topic HIB VACCINE Aged Out No longer eligi ble based on patient's age to complete this topic HPV VACCINE Aged Out No longer eligi ble based on patient's age to complete this topic MENINGOCOCCAL (Group B) VACC INE SHARED DECISION-MAKING Aged Out No longer eligibl e based on patient's age to complete this topic MENINGOCOCCAL GROUPS A/C/Y/W VACCINE Aged Out No longer eligible b ased on patient's age to complete this topic Procedures Procedure Name Priority Date/Time Associated Diagnosis Comments HPV DETECTION HIGH RISK VIRGILIO Routine 07/04/2019 9:35 AM CDT Well woman exam with routine gynecological exam from Last 3 Months or Most Recently Relevant to Health Maintenance Results * HPV DETECTION HIGH RISK VIRGILIO (07/04/2019 9:35 AM CDT) High Risk Human Papilloma Result Not Detected Not Detected 07/08/2019 9:24 AM CDT [facility] High Risk Human Papilloma Interp 07/08/2019 9:24 AM CDT [facility] Comment:High Risk Human Carmelo lloma Virus was Not Detected. Pathology/Cytolo gy MISCELLANEOUS SAMPLES / Unknown 07/04/2019 9:35 AM CDT 07/05/2019 12:21 PM CDT Narrative [facility] - 07/08/2019 9:24 AM CDT Nucleic acid isolated from the specimen was analyzed with a nucleic acid amplification test (FDA approved Gen-Probe HPV Assay) to detect high risk human papilloma virus (Types: 16, 18, 31, 33, 35, 39, 45, 51, 52, 56, 58, 59, 66, and 68). The reference range is Not Detected. Comment: These test results should not be used as the sole basis for clinical assessment and treatment of patients. These results should always be correlated with other available data (cytology, histology, and clinical information). Justin Glass MD LAB - MICROBIOLOGY ORDERABLES F inal Result Performing Organization Address City/State/[facility] Co de Phone Number [facility] [address] [place] [address], [facility] [phone] from Last 3 Months or Most Recently Relevant to Health Maintenance Insurance [employer] Care Teams Talend Etl Developer Relationship Specialty Start Date End Date Sebastian Latham MD [address] [place] [address] PCP - General 10/19/17
--- OUTSIDE RECORDS SUMMARY | 2025-01-16 01:18 | XMS_ITS | Clinical Summary ---
Author Organization [facility] Address [address] [place] [address] Care Team Providers Care Bundles Hanger Name Role Phone Unavailable Primary Care Provider Unavailabl e Social History Tobacco Use Types Packs/Day Years Used Date Smoking Tobacco: Never Assessed Comments Unknown Sex and Gender Information Value Date Recorded Sex Assigned at Not on file Legal Sex Female 11:45 AM CDT Gender Identity Not on file Sexual Orientation Not on file Plan of Treatment Health Maintenance Due Date Last Done Comments Cervical Cancer Screening Pa p Smear (Age 30 to 64) Every 3 Years 1961 Colorectal Cancer Screening Colonoscopy (10 Years) 1961 Annual Physical 1964 Hepatitis C 12/20/1979 DTaP, Tdap and Td Vaccines ( 1 - Tdap) 1980 Cervical Cancer Screening Pa p with HPV Testing (Age 30 to 64) Every 5 Years 12/20/1991 Cervical Cancer Screening with HPV 12/20/1991 Mammogram Screening 2001 Pneumococcal Vaccine: 50+ Ye ars (1 of 1 - PCV) 12/20/2011 Zoster Vaccines (1 of 2) 12/20/2011 COVID-19 Vaccine ( - 2023-2 5 season) 2024 RSV Immunization or 60+ Years (1 - 1-dose 75+ series) 2036 Meningococcal B Vaccine Aged Out No l onger eligible based on patient's age to complete this topic Meningococcal Vaccine Aged Out No cristina tim eligible based on patient's age to complete this topic RSV Immunizations Under 20 Months Aged Out No longer eligible based on patient's age to complete this topic
--- OUTSIDE RECORDS SUMMARY | 2025-01-16 01:18 | XMS_ITS | Encounter Summary ---
Author Organization [facility] Address [address] [place] [address] Care Team Providers Care Body Man Name Role Phone Sebastian Latham MD Primary Care Provider Encounter Details Date Type Department Care Team (Late st Contact Info) Description 01/24/2008 Outpatient Historical HIS MAMM VAN Sintia Quesdaa MD NO ADDRESS ON FILE Other Screening Mammogram Social History Tobacco Use Types Packs/Day Years Used Date Smoking Tobacco: Never Assessed Comments Unknown Sex and Gender Information Value Date Recorded Sex Assigned at Female 03/02/2024 6:58 PM FUNERAL HOME LOCATION MANAGER Legal Sex Female 5:03 AM FUNERAL HOME LOCATION MANAGER Gender Identity Female 03/02/2024 6:58 PM FUNERAL HOME LOCATION MANAGER Sexual Orientation Not on file documented as of this encounter Plan of Treatment Upcoming Encounters Date Type Department Care Team (Late st Contact Info) Description 03/02/2025 8:30 AM FUNERAL HOME LOCATION MANAGER Office Visit [facility] Oncology and Hematology David Olga [address] [facility] [address] [place] [address] [place] [address] [facility] [address] [place] [address] 03/02/2025 9:00 AM FUNERAL HOME LOCATION MANAGER [facility] [address] [place] [address] [place] [address] [facility] [address] [place] [address] 03/02/2025 9:45 AM FUNERAL HOME LOCATION MANAGER Office Visit [facility] Breast Surgery David Espinoza [address] [place] [address] [place] [address] [address] [place] [address] documented as of this encounter Procedures Procedure Name Priority Date/Time Associated Diagnosis Comments MAMMO SCREENING BILAT Routine 01/24/2008 2:02 PM CDT documented in this encounter Results * MAMMO SCREENING BILAT (01/24/2008 2:02 PM CDT) Anatomical Region Laterality Modality Breast Bilateral Other 01/24/2008 2:02 PM CDT Narrative 01/26/2008 7:12 AM CDT [facility] [address], [place] [address] Admit Date: 01/24/2008 FARNAZ SMITH Sex: F Admit Prov: SINTIA QUESADA Date: 1960 Primary Care Prov: ESTEFANIA HUSSEIN CMRN: [id number] Room: [facility] SSN: [id number] IMAGING SERVICES Ordering Prov: LUCIANO HERNANDEZ Accession Number: [id number] Interpretation BILATERAL SCREENING MAMMOGRAM. Date: 01/24/2008 History: Routine Screening. Technique: Craniocaudal and mediolateral oblique projections of both breasts were obtained. Comparison: 11/2005 Breast Parenchymal Composition: Heterogeneously dense, which lowers the sensitivity of mammography. Findings: No suspicious mass, suspicious microcalcifications, or architectural distortion in either breast is identified. Since the prior study, there has been no significant interval change. Overall Assessment: BI-RADS category 1: Negative. Recommendation: Annual mammography is recommended. Assessment BIRADS: 1-Negative Recommendation: Normal interval follow-up Dictated by: BRODERICK SANTOS Electronically signed by: BRODERICK SANTOS 01/26/2008 07:11 Transcribed: 01/25/2008 11:38 AMK Procedure Note Broderick Santos - 01/26/2008 [facility] [address] [facility] [address] [place], [place] [address] Admit Date: 01/24/2008 FARNAZ SMITH Sex: F Admit Prov: SINTIA QUESADA Date: 1960 Primary Care Prov: ESTEFANIA HUSSEIN CMRN: [id number] Room: [facility] SSN: [id number] IMAGING SERVICES Ordering Prov: LUCIANO HERNANDEZ Interpretation BILATERAL SCREENING MAMMOGRAM. Date: 01/24/2008 History: Routine Screening. Technique: Craniocaudal and mediolateral oblique projections ofboth breasts were obtained. Comparison: 11/2005 Breast Parenchymal Composition: Heterogeneously dense, which lowersthe sensitivity of mammography. Findings: No suspicious mass, suspicious microcalcifications, or architectural distortion in either breast is identified. Since theprior study, there has been no significant interval change. Overall Assessment: BI-RADS category 1: Negative. Recommendation: Annual mammography is recommended. Assessment BIRADS: 1-Negative Recommendation: Normal interval follow-up Dictated by: BRODERICK SANTOS Electronically signed by: BRODERICK SANTOS 01/26/2008 07:11 Transcribed: 01/25/2008 11:38 AMK us Luciano [place] MD MAMMO ORDERABLES Final R esult documented in this encounter Visit Diagnoses Diagnosis Other screening mammogram documented in this encounter Care Teams Body Man Relationship Specialty Start Date End Date Sebastian Latham MD [address] [place] [address] PCP - General Family Practice 11/29/20 documented as of this encounter
--- OUTSIDE RECORDS SUMMARY | 2025-01-16 01:18 | XMS_ITS | Encounter Summary ---
Author Organization [facility] Address [address] [place] [address] Care Team Providers Care Wire Mill Operator Name Role Phone Sebastian Latham MD Primary Care Provider Encounter Details Date Type Department Care Team (Late st Contact Info) Description 01/26/2007 Outpatient Historical HIS MAMM Alan Cates MD NO ADDRESS ON FILE Other Screening Mammogram (Primary Dx) Social History Tobacco Use Types Packs/Day Years Used Date Smoking Tobacco: Never Assessed Comments Unknown Sex and Gender Information Value Date Recorded Sex Assigned at Female 03/02/2024 6:58 PM ONLINE FACILITATOR Legal Sex Female 5:03 AM ONLINE FACILITATOR Gender Identity Female 03/02/2024 6:58 PM ONLINE FACILITATOR Sexual Orientation Not on file documented as of this encounter Plan of Treatment Upcoming Encounters Date Type Department Care Team (Late st Contact Info) Description 03/02/2025 8:30 AM ONLINE FACILITATOR Office Visit [facility] Oncology and Hematology David Olga [address] [facility] [address] [place] [address] [place] [address] [facility] [address] [place] [address] 03/02/2025 9:00 AM ONLINE FACILITATOR [facility] [address] [place] [address] [place] [address] [facility] [address] [place] [address] 03/02/2025 9:45 AM ONLINE FACILITATOR Office Visit [facility] Breast Surgery David Espinoza [address] [place] [address] [place] [address] [place] [address] documented as of this encounter Visit Diagnoses Diagnosis Other screening mammogram- Primary documented in this encounter Care Teams Wire Mill Operator Relationship Specialty Start Date End Date Sebastian Latham MD [address] [place] [address] PCP - General Family Practice 11/29/20 documented as of this encounter
--- OUTSIDE RECORDS SUMMARY | 2025-01-16 01:18 | XMS_ITS | Encounter Summary ---
Author Organization [facility] Address [address] [place] [address] Care Team Providers Care Surgery Specialist Name Role Phone Sebastian Latham MD Primary Care Provider Encounter Details Date Type Department Care Team (Late st Contact Info) Description 01/25/2004 Outpatient Historical HIS MAMM Elda Dow MD NO ADDRESS ON FILE SCREENING MAMM-MAILG NEOPL-OTHER (Primary Dx) Social History Tobacco Use Types Packs/Day Years Used Date Smoking Tobacco: Never Assessed Comments Unknown Sex and Gender Information Value Date Recorded Sex Assigned at Female 03/02/2024 6:58 PM DIRECTOR SPECIALTY Legal Sex Female 5:03 AM DIRECTOR SPECIALTY Gender Identity Female 03/02/2024 6:58 PM DIRECTOR SPECIALTY Sexual Orientation Not on file documented as of this encounter Plan of Treatment Upcoming Encounters Date Type Department Care Team (Late Contact Info) Description 03/02/2025 8:30 AM DIRECTOR SPECIALTY Office Visit [facility] Oncology and Hematology David Olga [address] [facility] [address] [place] [address] [place] [address] [facility] [address] [place] [address] 03/02/2025 9:00 AM DIRECTOR SPECIALTY Appointment [facility] [address] [address] [place] [address] [place] [address] [facility] [address] [place] [address] 03/02/2025 9:45 AM DIRECTOR SPECIALTY Office Visit [facility] Breast Surgery David Espinoza [address] [place] [address] [place] [address] [address] [place] [address] documented as of this encounter Visit Diagnoses Diagnosis Other screening mammogram- Primary documented in this encounter Care Teams Surgery Specialist Relationship Specialty Start Date End Date Sebastian Latham MD [address] [place] [address] PCP - General Family Practice 11/29/20 documented as of this encounter
--- OUTSIDE RECORDS SUMMARY | 2025-01-16 01:18 | XMS_ITS | Encounter Summary ---
Author Organization [facility] Address [address] [place] [address] Care Team Providers Care Regional Service Manager Name Role Phone Sebastian Latham MD Primary Care Provider Encounter Details Date Type Department Care Team (Late Contact Info) Description 01/23/2005 Outpatient Historical HIS MAMM Elda Dow MD NO ADDRESS ON FILE SCREENING MAMM-MAILG NEOPL NEC (Primary Dx) Social History Tobacco Use Types Packs/Day Years Used Date Smoking Tobacco: Never Assessed Comments Unknown Sex and Gender Information Value Date Recorded Sex Assigned at Female 03/02/2024 6:58 PM PILE DRIVER OPERATOR BARGE MOUNTED Legal Sex Female 5:03 AM PILE DRIVER OPERATOR BARGE MOUNTED Gender Identity Female 03/02/2024 6:58 PM PILE DRIVER OPERATOR BARGE MOUNTED Sexual Orientation Not on file documented as of this encounter Plan of Treatment Upcoming Encounters Date Type Department Care Team (Late Contact Info) Description 03/02/2025 8:30 AM PILE DRIVER OPERATOR BARGE MOUNTED Office Visit [facility] Oncology and Hematology David Olga [address] [facility] [address] [place] [address] [place] [address] [facility] [address] [place] [address] 03/02/2025 9:00 AM PILE DRIVER OPERATOR BARGE MOUNTED Appointment [facility] [address] [address] [place] [address] [place] [address] [facility] [address] [place] [address] 03/02/2025 9:45 AM PILE DRIVER OPERATOR BARGE MOUNTED Office Visit [facility] Breast Surgery David Espinoza [address] [place] [address] [place] [address] [address] [place] [address] documented as of this encounter Visit Diagnoses Diagnosis Other screening mammogram- Primary documented in this encounter Care Teams Regional Service Manager Relationship Specialty Start Date End Date Sebastian Latham MD [address] [place] [address] PCP - General Family Practice 11/29/20 documented as of this encounter
--- OUTSIDE RECORDS SUMMARY | 2025-01-16 01:18 | XMS_ITS | Encounter Summary ---
Author Organization [facility] Address [address] [place] [address] Care Team Providers Care Composition Tile Layer Name Role Phone Sebastian Latham MD Primary Care Provider Encounter Details Date Type Department Care Team (Late st Contact Info) Description 02/02/2001 Outpatient Historical HIS [facility] GAL Hoover, MD Mc [address] [place] [address] Other screening mammogram (Primary Dx) Social History Tobacco Use Types Packs/Day Years Used Date Smoking Tobacco: Never Assessed Comments Unknown Sex and Gender Information Value Date Recorded Sex Assigned at Female 03/02/2024 6:58 PM DIRECT CHILL CASTING OPERATOR Legal Sex Female 5:03 AM DIRECT CHILL CASTING OPERATOR Gender Identity Female 03/02/2024 6:58 PM DIRECT CHILL CASTING OPERATOR Sexual Orientation Not on file documented as of this encounter Plan of Treatment Upcoming Encounters Date Type Department Care Team (Late st Contact Info) Description 03/02/2025 8:30 AM DIRECT CHILL CASTING OPERATOR Office Visit [facility] Oncology and Hematology David Espinoza [address] [address] [place] [address] [address] [place] [address] 03/02/2025 9:00 AM DIRECT CHILL CASTING OPERATOR Appointment [facility] David Espinoza [address] [place] [address] [place] [address] [place] [address] 03/02/2025 9:45 AM DIRECT CHILL CASTING OPERATOR Office Visit [facility] Breast Surgery David Espinoza [address] [place] [address] [place] [address] [place] [address] documented as of this encounter Visit Diagnoses Diagnosis Other screening mammogram- Primary documented in this encounter Care Teams Composition Tile Layer Relationship Specialty Start Date End Date Sebastian Latham MD [address] [place] [address] PCP - General Family Practice 11/29/20 documented as of this encounter
--- OUTSIDE RECORDS SUMMARY | 2025-01-16 01:18 | XMS_ITS | Encounter Summary ---
Author Organization [facility] Address [address] [place] [address] Care Team Providers Care Facilities Maintenance Supervisor Name Role Phone Sebastian Latham MD Primary Care Provider Encounter Details Date Type Department Care Team (Late st Contact Info) Description 02/05/2006 Outpatient Historical HIS MAMM Alan Cates MD NO ADDRESS ON FILE Other Screening Mammogram (Primary Dx) Social History Tobacco Use Types Packs/Day Years Used Date Smoking Tobacco: Never Assessed Comments Unknown Sex and Gender Information Value Date Recorded Sex Assigned at Female 03/02/2024 6:58 PM ASSISTANT CASINO SHIFT MANAGER Legal Sex Female 5:03 AM ASSISTANT CASINO SHIFT MANAGER Gender Identity Female 03/02/2024 6:58 PM ASSISTANT CASINO SHIFT MANAGER Sexual Orientation Not on file documented as of this encounter Plan of Treatment Upcoming Encounters Date Type Department Care Team (Late st Contact Info) Description 03/02/2025 8:30 AM ASSISTANT CASINO SHIFT MANAGER Office Visit [facility] Oncology and Hematology David Olga [address] [facility] [address] [place] [address] [place] [address] [facility] [address] [place] [address] 03/02/2025 9:00 AM ASSISTANT CASINO SHIFT MANAGER [facility] [address] [place] [address] [place] [address] [facility] [address] [place] [address] 03/02/2025 9:45 AM ASSISTANT CASINO SHIFT MANAGER Office Visit [facility] Breast Surgery David Espinoza [address] [place] [address] [place] [address] [place] [address] documented as of this encounter Visit Diagnoses Diagnosis Other screening mammogram- Primary documented in this encounter Care Teams Facilities Maintenance Supervisor Relationship Specialty Start Date End Date Sebastian Latham MD [address] [place] [address] PCP - General Family Practice 11/29/20 documented as of this encounter
--- OUTSIDE RECORDS SUMMARY | 2025-01-16 01:18 | XMS_ITS | Encounter Summary ---
Author Organization [facility] Address [address] [place] [address] Care Team Providers Care Grain Miller Helper Name Role Phone Sebastian Latham MD Primary Care Provider Encounter Details Date Type Department Care Team (Latest Contact Info) Description 02/20/1998 Outpatient Historical HIS [facility] GAL BLDG Conversion, History Lump or mass in breast (Primary Dx) Social History Tobacco Use Types Packs/Day Years Used Date Smoking Tobacco: Never Assessed Comments Unknown Sex and Gender Information Value Date Recorded Sex Assigned at Female 03/02/2024 6:58 PM DEPARTMENT ASSISTANT Legal Sex Female 5:03 AM DEPARTMENT ASSISTANT Gender Identity Female 03/02/2024 6:58 PM DEPARTMENT ASSISTANT Sexual Orientation Not on file documented as of this encounter Plan of Treatment Upcoming Encounters Date Type Department Care Team (Late st Contact Info) Description 03/02/2025 8:30 AM DEPARTMENT ASSISTANT Office Visit [facility] Oncology and Hematology David Espinoza [address] [facility] [address] [place] [address] [place] [address] [facility] 120 [place] [address] 03/02/2025 9:00 AM DEPARTMENT ASSISTANT [facility] [address] [place] [address] [place] [address] [place] [address] 03/02/2025 9:45 AM DEPARTMENT ASSISTANT Office Visit [facility] Breast Surgery David Espinoza [address] [place] [address] [place] [address] [place] [address] documented as of this encounter Visit Diagnoses Diagnosis Lump or mass in breast- Primary documented in this encounter Care Teams Grain Miller Helper Relationship Specialty Start Date End Date Sebastian Latham MD [address] [place] [address] PCP - General Family Practice 11/29/20 documented as of this encounter
--- OUTSIDE RECORDS SUMMARY | 2025-01-16 01:18 | XMS_ITS | Encounter Summary ---
Author Organization [facility] Address [address] [place] [address] Care Team Providers Care Supervisor Frame Sample And Pattern Name Role Phone Sebastian Latham MD Primary Care Provider Encounter Details Date Type Department Care Team (Latest Contact Info) Description 02/04/2000 Outpatient Historical HIS [facility] GAL BLDG Conversion, History Other screening mammogram (Primary Dx) Social History Tobacco Use Types Packs/Day Years Used Date Smoking Tobacco: Never Assessed Comments Unknown Sex and Gender Information Value Date Recorded Sex Assigned at Female 03/02/2024 6:58 PM TEACHING PASTOR Legal Sex Female 5:03 AM TEACHING PASTOR Gender Identity Female 03/02/2024 6:58 PM TEACHING PASTOR Sexual Orientation Not on file documented as of this encounter Plan of Treatment Upcoming Encounters Date Type Department Care Team (Late st Contact Info) Description 03/02/2025 8:30 AM TEACHING PASTOR Office Visit [facility] Oncology and Hematology David Espinoza [address] [facility] [address] [place] [address] [place] [address] [facility] [address] [place] [address] 03/02/2025 9:00 AM TEACHING PASTOR Appointment [facility] David Espinoza [address] [place] [address] [place] [address] [place] [address] 03/02/2025 9:45 AM TEACHING PASTOR Office Visit [facility] Breast Surgery David Espinoza [address] [place] [address] [place] [address] [address] [place] [address] documented as of this encounter Visit Diagnoses Diagnosis Other screening mammogram- Primary documented in this encounter Care Teams Supervisor Frame Sample And Pattern Relationship Specialty Start Date End Date Sebastian Latham MD [address] [place] [place] [address] PCP - General Family Practice 11/29/20 documented as of this encounter
--- NOTE | 2025-01-16 07:09 | WPDHPUPDATE1 ---
History and Physical Update Update Date/Time: 01/16/25 07:09 History and Physical has been reviewed, including an updated exam of the patient. There are NO changes in the patient's condition. Risks, benefits, and alternatives have been discussed and questions answered. Patient agrees to proceed with hysteroscopy with D&C.
[2025-01-16 09:00] VITALS: BP 163/70; PULSE 65; RESP 20; TEMP 37.2; O2SAT 99
--- NOTE | 2025-01-16 09:41 | WPDANESEPPF ---
Anes - Initial Pre Proc Eval Procedure: Operation Date: 01/16/25 11:00 Proposed Procedures p Hysteroscopy, Dilation and Curettage - Gardenia Mcqueen MD Date/Time: 01/16/25 09:41 Surgeon: Gardenia Mcqueen MD Pre Op Diagnosis: endometrial hyperplasia Patient Data Age: 64 Gender: F Height: 1.7 m Weight: 87 kg Last Vital Signs Temp 37.2 C 01/16/25 09:00 Pulse 65 01/16/25 09:00 Resp 20 01/16/25 09:00 BP 163/70 H 01/16/25 09:00 Pulse Ox 99 01/16/25 09:00 O2 Del Method Room Air 01/16/25 09:00 Allergies Allergy/AdvReac Type Severity Reaction Status Date / Time No Known Allergies Allergy Verified 01/04/25 10:13 Home Medications ?Medication ?Instructions ?Recorded ?Confirmed ?Type alendronate 70 mg tablet 70 mg PO WEEKLY 03/04/22 01/04/25 History tamoxifen 20 mg tablet 20 mg PO DAILY 08/24/23 01/04/25 History fluoxetine 10 mg capsule 10 mg PO DAILY #90 caps 03/07/24 01/04/25 Rx triamcinolone acetonide 0.1 % 1 applic topical BID PRN rash #30 03/07/24 01/04/25 Rx topical cream grams cyanocobalamin (vitamin B-12) 1,000 mcg sublingual 2XW #90 tabs 03/15/24 01/04/25 Rx 1,000 mcg sublingual tablet amlodipine 5 mg tablet 5 mg PO DAILY #90 tabs 05/06/24 01/04/25 Rx calcium carbonate (Calcium 500) 500 mg PO DAILY 01/04/25 01/04/25 History Patient hx anesthesia problems: none Family hx anesthesia problems: none Results Review: All pre-operative results and documents have been reviewed as part of the pre-operative evaluation. [facility] Past Medical History Medical History Depression with anxiety Osteoporosis Vitamin B12 deficiency Breast cancer Age related osteoporosis Vitamin D deficiency Essential (primary) hypertension Invasive lobular carcinoma of breast, stage 1 History of colon polyps Chronic neck and back pain Eczema Major depressive disorder, recurrent episode, unspecified Surgical History Surgical History History of lumpectomy of right breast 11/2020 History of cholecystectomy 06/2001 Family History Family History Father Family history of lung cancer, Onset Age: 73 Mother Family history of coronary artery disease, Onset Age: 63 Social History Social History Smoking status: Never smoker Second hand tobacco smoke exposure: No Alcohol intake: current Alcohol use details: socially Substance use: never Substance use type: does not use Do You Feel Safe in your Home?: Yes Lack of Transportation: No Lack of Food: Never True Current Housing: I Have Housing Concerned About Future Housing: No Difficulty Paying Gas/Electric Bills: No Difficulty Paying for Meds: No Currently Unemployed: No Education: Bachelor's Degree Difficulty w/ Childcare or Family Care: No Living arrangements: with family Occupation/Education: retired 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 Gender identity (if verbalized by the patient): Female Sexual Orientation (if Verbalized by the Patient): Straight or Heterosexual Spiritual care concerns: No Anes - Eval Final PreProcedure Day of Procedure 01/16/25 09:41 Patient weight: obese Heart: regular rate and rhythm Lungs: clear to auscultation Airway: Mallampati scale class II Neurological: alert and oriented Last oral intake: >/= 8 hours ASA classification: III Emergent: no Anesthetic plan: proceed Anesthesia type and monitoring: general GIVS and standard monitoring Results Review: All pre-operative results and documents have been reviewed as part of the pre-operative evaluation. Informed Consent: The patient's anesthetic plan and its attendant risks and benefits were discussed with the patient/family/POA. Questions were solicited and answers provided to the satisfaction of the patient/family/POA.
[2025-01-16] MEDS: ACETAMINOPHEN 500 MG TABLET 1000 MG PO (09:42)
[2025-01-16] MEDS: LACTATED RINGERS 1,000 ML 30 ML IV CONT (10:50)
--- NOTE | 2025-01-16 11:12 | S_PTH ---
PATIENT: Farnaz Stoner LOC: [facility] U#:[id number] AGE/SX: 64/F ROOM: RE01/16/[address]: Gardenia Mcqueen MD : 1960 BED: DIS: 01/16/2025 SPEC #: [id number] RECD: 01/16/25 13:17 STATUS: KEN RE #: [id number] QUINN: 01/16/25 11:[address]: Gardenia Mcqueen DEPT: [facility] Surgical RECD BY: Karla Hanks ENTERED: 01/16/25 13:17 SP TYPE: Surgical OTHR DR: Sebastian Latham MD Tissues: A - Endometrial Curettings Procedures: Hematoxylin and Eosin Stain Gross and Microscopic Level 4
--- NOTE | 2025-01-16 11:19 | P.OP_ITS ---
Procedure Note - Detailed Date of Procedure 01/16/25 Pre-op Diagnosis endometrial thickening on US Post-op Diagnosis Same Procedure Performed Hysteroscopy with D&C Surgeon Gardenia Mcqueen MD Anesthesia MAC Findings Uterus sounded to 9cm, uterine prolapse noted (cervix to opening of vagina). Normal appearing endometrium, bilateral tubal ostia visualized. Fluid deficit: 20cc Description of Procedure Farnaz was taken to the operating room where she was placed under sedation without complications. She was then prepped and draped in the usual sterile fashion in the dorsal lithotomy position with her legs in low Alfa stirrups. A time-out was performed and no perioperative antibiotics were indicated. A bivalve speculum was placed within the vagina where the cervix was easily identified. The anterior lip of the cervix was grasped with a single-tooth cici culum. The uterus was sounded. The cervix was then serially dilated to allow for the hysteroscope. The hysteroscope was advanced into the uterine cavity with the above findings noted. A curettage was then performed until a good uterine cry was felt throughout the uterus. The hysteroscope was advanced back into the uterus to verify that all areas of the uterus were sampled. Good hemostasis was noted. All instruments were removed from the vagina. Sponge, lap, instrument, and needle counts were correct at the end of the procedure. Patient was awoken from anesthesia and taken to recovery with plans of same-day discharge home. Estimated Blood Loss 5 IV Fluids 400 Pathology Yes (endometrial curettings) Complications No immediate complications Condition Stable Disposition Same day [facility] Billing Surgery - Charge Forward: Surgery Billing
[2025-01-16 11:21] VITALS: BP 104/54; PULSE 57; RESP 16; O2SAT 100
[2025-01-16 11:51] VITALS: BP 122/64; PULSE 55; RESP 16; O2SAT 100
[2025-01-16 12:21] VITALS: BP 128/76; PULSE 57; RESP 15
== END 2025-01-16 12:33 | disposition home or self-care (01) ==
PROVIDERS: PCP Family Medicine; Visit Provider Obstetrics & Gynecology
PROC: 0U5B8ZZ Destruction of Endometrium, Via Natural or Artificial Opening Endoscopic (ICD-10-PCS; CPT 58563; principal; 2025-01-16 11:00)
DX: R93.89 Abnormal findings on diagnostic imaging of other specified body structures (principal); N81.4 Uterovaginal prolapse, unspecified; I10 Essential (primary) hypertension; M81.0 Age-related osteoporosis without current pathological fracture; E53.8 Deficiency of other specified B group vitamins; E55.9 Vitamin D deficiency, unspecified; F41.8 Other specified anxiety disorders; F33.9 Major depressive disorder, recurrent, unspecified; G89.29 Other chronic pain; M54.2 Cervicalgia; M54.9 Dorsalgia, unspecified; E66.9 Obesity, unspecified; Z68.30 Body mass index [BMI] 30.0-30.9, adult; Z79.83 Long term (current) use of bisphosphonates; Z79.810 Long term (current) use of selective estrogen receptor modulators (SERMs); Z90.49 Acquired absence of other specified parts of digestive tract; Z90.11 Acquired absence of right breast and nipple; Z86.0100 Personal history of colon polyps, unspecified; Z92.3 Personal history of irradiation; Z85.3 Personal history of malignant neoplasm of breast; Z80.1 Family history of malignant neoplasm of trachea, bronchus and lung; Z82.49 Family history of ischemic heart disease and other diseases of the circulatory system
CPT/HCPCS: 58558; 88305; A9270; J2003; J2250; J2704; J3010; J7120

== ENCOUNTER 2025-02-07 07:51 | Outpatient (CLI) | payer BC, SELFPAY ==
--- OUTSIDE RECORDS SUMMARY | 2025-02-07 08:03 | XMS_ITS | Encounter Summary ---
Author Organization [facility] Address [address] [place] [address] Care Team Providers Care Fitness Trainer Name Role Phone Sebastian Latham MD Primary [...] Sex Assigned at Female 03/02/2024 6:58 PM NEWCOMER HOSTESS Legal Sex Female 5:03 AM NEWCOMER HOSTESS Gender Identity Female 03/02/2024 6:58 PM NEWCOMER HOSTESS Sexual Orientation Not on file documented as of this encounter Plan of Treatment Upcoming Encounters Date Type Department Care Team (Late Contact Info) Description 03/02/2025 8:30 AM NEWCOMER HOSTESS Office Visit [facility] Oncology and Hematology David Olga [address] [facility] [address] [place] [address] [place] [address] [facility] [address] [place] [address] 03/02/2025 9:00 AM NEWCOMER HOSTESS Appointment [facility] [address] [address] [place] [address] [place] [address] [facility] [address] [place] [address] 03/02/2025 9:45 AM NEWCOMER HOSTESS Office Visit [facility] Breast Surgery Daivd Espinoza [address] [place] [address] [place] [address] [address] [place] [address] documented as of this encounter Visit Diagnoses Diagnosis Other screening mammogram- Primary documented in this encounter Care Teams Fitness Trainer Relationship Specialty Start Date End Date Sebastian Latham MD [address] [place] [address] PCP - General Family Practice 11/29/20 documented as of this encounter
--- OUTSIDE RECORDS SUMMARY | 2025-02-07 08:03 | XMS_ITS | Encounter Summary ---
Author Organization [facility] Address [address] [place] [address] Care Team Providers Care Schedule Checker Name Role Phone Sebastian Latham MD Primary Care Provider Encounter Details Date Type Department Care Team (Latest Contact Info) Description 02/04/2000 Outpatient Historical HIS [facility] GAL BLDG Conversion, History Other screening mammogram (Primary Dx) Social History Tobacco Use Types Packs/Day Years Used Date Smoking Tobacco: Never Assessed Comments Unknown Sex and Gender Information Value Date Recorded Sex Assigned at Female 03/02/2024 6:58 PM GROUNDS MANAGER Legal Sex Female 5:03 AM GROUNDS MANAGER Gender Identity Female 03/02/2024 6:58 PM GROUNDS MANAGER Sexual Orientation Not on file documented as of this encounter Plan of Treatment Upcoming Encounters Date Type Department Care Team (Late st Contact Info) Description 03/02/2025 8:30 AM GROUNDS MANAGER Office Visit [facility] Oncology and Hematology David Espinoza [address] [facility] [address] [place] [address] [place] [address] [facility] [address] [place] [address] 03/02/2025 9:00 AM GROUNDS MANAGER Appointment [facility] David Espinoza [address] [place] [address] [place] [address] [place] [address] 03/02/2025 9:45 AM GROUNDS MANAGER Office Visit [facility] Breast Surgery David Espinoza [address] [place] [address] [place] [address] [place] [address] documented as of this encounter Visit Diagnoses Diagnosis Other screening mammogram- Primary documented in this encounter Care Teams Schedule Checker Relationship Specialty Start Date End Date Sebastian Latham MD [address] [place] [address] PCP - General Family Practice 11/29/20 documented as of this encounter
--- OUTSIDE RECORDS SUMMARY | 2025-02-07 08:03 | XMS_ITS | Encounter Summary ---
Author Organization [facility] Address [address] [place] [address] Care Team Providers Care Parts Identifier Name Role Phone Sebastian Latham MD Primary [...] Sex Assigned at Female 03/02/2024 6:58 PM SPINNING FRAME FIXER Legal Sex Female 5:03 AM SPINNING FRAME FIXER Gender Identity Female 03/02/2024 6:58 PM SPINNING FRAME FIXER Sexual Orientation Not on file documented as of this encounter Plan of Treatment Upcoming Encounters Date Type Department Care Team (Late st Contact Info) Description 03/02/2025 8:30 AM SPINNING FRAME FIXER Office Visit [facility] Oncology and Hematology David Olga [address] [facility] 120 [place] [address] [place] [address] [facility] 120 [place] [address] 03/02/2025 9:00 AM SPINNING FRAME FIXER [facility] [address] [place] [address] [place] [address] [facility] [address] [place] [address] 03/02/2025 9:45 AM SPINNING FRAME FIXER Office Visit [facility] Breast Surgery David Espinoza [address] [place] [place] [address] [place] [address] [place] [address] documented as of this encounter Visit Diagnoses Diagnosis Other screening mammogram- Primary documented in this encounter Care Teams Parts Identifier Relationship Specialty Start Date End Date Sebastian Latham MD [address] [place] [address] PCP - General Family Practice 11/29/20 documented as of this encounter
--- OUTSIDE RECORDS SUMMARY | 2025-02-07 08:03 | XMS_ITS | Clinical Summary ---
Author Organization [facility] Address [address] [facility] [place] [address] Care Team Providers Care Manager Financial Reporting Name Role Phone Sebastian Latham MD Primary [...] on file Legal Sex Female 5:29 AM CERAMIC ENGINEERING PROFESSOR Gender Identity Not on file Sexual Orientation [...] patient's age to complete this topic [place] [facility] Care Teams Manager Financial Reporting Relationship Specialty Start Date End Date Sebastian Latham MD PCP - General 05/12/17
--- OUTSIDE RECORDS SUMMARY | 2025-02-07 08:03 | XMS_ITS | Encounter Summary ---
Author Organization [facility] Address [address] [place] [address] Care Team Providers Care Radiological Engineer Name Role Phone Sebastian Latham MD Primary Care Provider Encounter Details Date Type Department Care Team (Late Contact Info) Description 01/18/2002 Outpatient Historical HIS MAMM Mc Weeks MD [address] [place] [address] SCREENING MAMM-MAILG NEOPL-OTHER (Primary Dx) Social History Tobacco Use Types Packs/Day Years Used Date Smoking Tobacco: Never Assessed Comments Unknown Sex and Gender Information Value Date Recorded Sex Assigned at Female 03/02/2024 6:58 PM TRANSFORMER ASSEMBLY SUPERVISOR Legal Sex Female 5:03 AM TRANSFORMER ASSEMBLY SUPERVISOR Gender Identity Female 03/02/2024 6:58 PM TRANSFORMER ASSEMBLY SUPERVISOR Sexual Orientation Not on file documented as of this encounter Plan of Treatment Upcoming Encounters Date Type Department Care Team (Late st Contact Info) Description 03/02/2025 8:30 AM TRANSFORMER ASSEMBLY SUPERVISOR Office Visit [facility] Oncology and Hematology David Espinoza [address] [address] [place] [address] [address] 03/02/2025 9:00 AM TRANSFORMER ASSEMBLY SUPERVISOR Appointment [facility] David Espinoza [address] [place] [address] [place] [address] [facility] [address] [place] [address] 03/02/2025 9:45 AM TRANSFORMER ASSEMBLY SUPERVISOR Office Visit [facility] Breast Surgery David Espinoza [address] [facility] [address] [place] [address] [place] [address] [facility] [address] [place] [address] documented as of this encounter Visit Diagnoses Diagnosis Other screening mammogram- Primary documented in this encounter Care Teams Radiological Engineer Relationship Specialty Start Date End Date Sebastian Latham MD [address] [facility] [place] [address] PCP - General Family Practice 11/29/20 documented as of this encounter
--- OUTSIDE RECORDS SUMMARY | 2025-02-07 08:03 | XMS_ITS | Encounter Summary ---
Author Organization [facility] Address [address] [place] [address] Care Team Providers Care Diabetes Educator Name Role Phone Sebastian Latham MD Primary [...] Sex Assigned at Female 03/02/2024 6:58 PM CATALYTIC CASE OPERATOR Legal Sex Female 5:03 AM CATALYTIC CASE OPERATOR Gender Identity Female 03/02/2024 6:58 PM CATALYTIC CASE OPERATOR Sexual Orientation Not on file documented as of this encounter Plan of Treatment Upcoming Encounters Date Type Department Care Team (Late Contact Info) Description 03/02/2025 8:30 AM CATALYTIC CASE OPERATOR Office Visit [facility] Oncology and Hematology David Olga [address] [facility] [address] [place] [address] [place] [address] [facility] 120 [place] [address] 03/02/2025 9:00 AM CATALYTIC CASE OPERATOR Appointment [facility] [address] [address] [place] [address] [place] [address] [facility] [address] [place] [address] 03/02/2025 9:45 AM CATALYTIC CASE OPERATOR Office Visit [facility] Breast Surgery David Espinoza [address] [place] [address] [place] [address] [address] [place] [address] documented as of this encounter Visit Diagnoses Diagnosis Other screening mammogram- Primary documented in this encounter Care Teams Diabetes Educator Relationship Specialty Start Date End Date Sebastian Latham MD [address] [place] [address] PCP - General Family Practice 11/29/20 documented as of this encounter
--- OUTSIDE RECORDS SUMMARY | 2025-02-07 08:03 | XMS_ITS | Clinical Summary ---
Author Organization [facility] [email or web address] Address [address] [facility] [place] [address] Care Team Providers Care Airplane Refueler Name Role Phone Sebastian Latham MD Primary Care Provider Source Comments [facility] [email or web address],non-owned Affiliates and Associated Physician Practices is amultiple site organization consisting of ambulatory clinics and hospital sitesin [place], [place], [place] and [place]. This disclosure is being madepursuant to the Care Everywhere program and may not contain all information available regarding this patient. Last updated 18.[facility] [email or web address] Allergies No known active allergies Medications * [...] on file Legal Sex Female 5:22 PM DIRECTOR OF HEMOPHILIA Gender Identity Not on file Sexual Orientation [...] Detected Not Detected 07/08/2019 9:24 AM CDT [facility] High Risk Human Papilloma Interp 07/08/2019 9:24 AM CDT [facility] Comment:High Risk Human Carmelo lloma Virus was Not Detected. Pathology/Cytolo gy MISCELLANEOUS SAMPLES / Unknown 07/04/2019 9:35 AM CDT 07/05/2019 12:21 PM CDT Narrative [facility] - 07/08/2019 9:24 AM CDT [...] ORDERABLES F inal Result Performing Organization Address City/State/[facility] Co de Phone Number [facility] [address] [place] [address], [facility] [phone] from Last 3 Months or Most Recently Relevant to Health Maintenance Insurance [employer] Care Teams Airplane Refueler Relationship Specialty Start Date End Date Sebastian Latham MD [address] [place] [address] PCP - General 10/19/17
--- OUTSIDE RECORDS SUMMARY | 2025-02-07 08:03 | XMS_ITS | Encounter Summary ---
Author Organization [facility] Address [address] [place] [address] Care Team Providers Care Patrol Deputy Sheriff Name Role Phone Sebastian Latham MD Primary [...] Sex Assigned at Female 03/02/2024 6:58 PM CLEAN UP WORKER Legal Sex Female 5:03 AM CLEAN UP WORKER Gender Identity Female 03/02/2024 6:58 PM CLEAN UP WORKER Sexual Orientation Not on file documented as of this encounter Plan of Treatment Upcoming Encounters Date Type Department Care Team (Late Contact Info) Description 03/02/2025 8:30 AM CLEAN UP WORKER Office Visit [facility] Oncology and Hematology David Olga [address] [facility] [address] [place] [address] [place] [address] [facility] [address] [place] [address] 03/02/2025 9:00 AM CLEAN UP WORKER Appointment [facility] [address] [address] [place] [address] [place] [address] [facility] [address] [place] [address] 03/02/2025 9:45 AM CLEAN UP WORKER Office Visit [facility] Breast Surgery David Espinoza [address] [place] [address] [place] [address] [address] [place] [address] documented as of this encounter Visit Diagnoses Diagnosis Other screening mammogram- Primary documented in this encounter Care Teams Patrol Deputy Sheriff Relationship Specialty Start Date End Date Sebastian Latham MD [address] [place] [address] PCP - General Family Practice 11/29/20 documented as of this encounter
--- OUTSIDE RECORDS SUMMARY | 2025-02-07 08:03 | XMS_ITS | Encounter Summary ---
Author Organization [facility] Address [address] [place] [address] Care Team Providers Care Waiter/Waitress Counter Name Role Phone Sebastian Latham MD Primary [...] Sex Assigned at Female 03/02/2024 6:58 PM INSURANCE ADVISOR Legal Sex Female 5:03 AM INSURANCE ADVISOR Gender Identity Female 03/02/2024 6:58 PM INSURANCE ADVISOR Sexual Orientation Not on file documented as of this encounter Plan of Treatment Upcoming Encounters Date Type Department Care Team (Late st Contact Info) Description 03/02/2025 8:30 AM INSURANCE ADVISOR Office Visit [facility] Oncology and Hematology David Olga [address] [facility] 120 [place] [address] [place] [address] [facility] 120 [place] [address] 03/02/2025 9:00 AM INSURANCE ADVISOR [facility]ment [facility] [address] [place] [address] [place] [address] [facility] [address] [place] [address] 03/02/2025 9:45 AM INSURANCE ADVISOR Office Visit [facility] Breast Surgery David Espinoza [address] [place] [address] [place] [address] [place] [address] documented as of this encounter Visit Diagnoses Diagnosis Other screening mammogram- Primary documented in this encounter Care Teams Waiter/Waitress Counter Relationship Specialty Start Date End Date Sebastian Latham MD [address] [place] [address] PCP - General Family Practice 11/29/20 documented as of this encounter
--- OUTSIDE RECORDS SUMMARY | 2025-02-07 08:03 | XMS_ITS | Clinical Summary ---
Author Organization [facility] Address [address] [place] [address] Phone Care Team Providers Care Operations Support Analyst Name Role Phone Sebastian Latham MD Primary Care Provider Allergies No known active allergies Medications triamcinolone acetonide (KENALOG) 0.1 % Cream triamcinolone acetonide 0.1 % topical cream APPLY A THIN LAYER OF CREAM TOPICALLY TWICE DAILY TO AFFECTED AREA(S) ON HANDS AND LEGS Active amLODIPine (NORVASC) 5 mg tablet 02/01/20 21 Active FLUoxetine (PROzac) 10 mg capsule Take 10 mg by mouth daily. Active hydrOXYzine HCL (ATARAX) 25 mg tablet Take 25 mg by mouth 3 times daily as needed for Itching. Active CYANOCOBALAMI N, VITAMIN B-12, ORAL Take by mouth. 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, estrogen receptor positive 10/23/2020 Overview (06/20/2021): Stage: Clinical T1 N0; pT1 N0 Date of diagnosis: 10/09/2020 Diagnosis: RIGHT 8 mm ILC, 0/2 LN ER positive PA positive HER-2 negative Surgeon: Venkatesh Surgery: 12/03/2020 [...] Encounters Date Type Department Care Team Description 01/24/2025 External Device Data STL ABSTRACTION Provider, Abstract 01/19/2025 [facility] Oncology and Hematology Matt Espinoza [address] [address] [place] [address] Michelle Chong PA Malignant neoplasm of lower-outer quadrant of right breast of female, estrogen receptor positive (CMS/HCC) 12/27/2024 External Device Data STL ABSTRACTION Provider, Abstract 12/20/2024 External Device Data STL ABSTRACTION Provider, Abstract 12/06/2024 External Device Data STL ABSTRACTION Provider, Abstract 12/06/2024 External Device Data STL ABSTRACTION Provider, Abstract 11/29/2024 External Device Data STL ABSTRACTION Provider, Abstract 11/23/2024 External Device Data STL ABSTRACTION Provider, Abstract from Last 3 Months Immunizations Immunization Administration Dates Next Due (PFIZER)(12 YR UP) COVID-19 VACCINE - EMERGENCY USE AUTHORIZATION, MRNA, [id number](PF) 30 MCG/0.3 ML IM SUSP 06/25/2020,05/28/2020 Family [...] Relation Name Status Comments Brother 1 Angel Herbie Brother 2 Yang Stoner Brother 3 Alex [...] Sex Assigned at Female 03/02/2024 6:58 PM COMPANY MARKER Legal Sex Female 5:03 AM COMPANY MARKER Gender Identity Female 03/02/2024 6:58 PM COMPANY MARKER Sexual Orientation Not on file Occupation Industry [...] st Contact Info) Description 03/02/2025 8:30 AM COMPANY MARKER Office Visit [facility] [address] [facility] 120 [place] [address] [place] [address] [facility] 120 [place] [address] 03/02/2025 9:00 AM COMPANY MARKER Appointment [facility] [place] [address] [place] [address] [place] [address] [facility] 120 [place] [address] 03/02/2025 9:45 AM COMPANY MARKER Office Visit [facility] Breast Surgery Matt Olga [address] [facility] [address] [place] [address] [place] [address] [facility] [address] [place] [address] Health Maintenance Due Date Last Done [...] 07/04/2019 INFLUENZA VACCINE (#1) 2024 COVID-19 Vaccine (2024-2 6 season) 2024 06/25/2020, 05/28/2020 BREAST CANCER SCREENING 02/25/2025 02/26/20 24, 02/12/2023, 01/16/2022, Additional history exists RSV VACCINE (60+ or ) (1 - 1-dose 75+ series) 2036 Medical Devices Implanted Type Area Topology Professor Device Identifier Shelf Expiration Date Model / Serial / Lot Pediatric Registered Nurse Clip Surgiclip Ii Mauri 9.75in [id number] - [id number] Implanted:Qty: 1 on 12/03/2020 by Tammy Riddle MD at [facility] Matt Espinoza Clip Right: Axilla [employer] - COVIDIEN 07/18/2025 [id number] / / [id number] Procedures Procedure Name Priority Date/Time Associated Diagnosis Comments MAMMO 3D CHEY DIAGNOSTIC BILAT W OR WO CAD Routine 02/26/2024 1:04 PM COMPANY MARKER Malignant neoplasm of lower-outer quadrant of right breast of female, estrogen receptor positive (CMS/HCC) from Last 3 Months or Most Recently Relevant to Health Maintenance Results * MAMMO DIAG BILAT 3D CHEY W OR WO CAD (02/26/2024 1:04 PM COMPANY MARKER) Anatomical Region Laterality Modality Breast Bilateral Mammography 02/26/2024 1:04 PM COMPANY MARKER Impressions 02/26/2024 1:46 PM COMPANY MARKER IMPRESSION: No suspicious finding within either breast. Annual mammography recommended. BI-RADS Category 2: Benign findings. Yessenia Espinoza Narrative 02/26/2024 1:46 PM COMPANY MARKER EXAM: BILATERAL DIGITAL DIAGNOSTIC MAMMOGRAPHY WITH TOMOSYNTHESIS [...] Most Recently Relevant to Health Maintenance Insurance [facility] [employer] Care Teams Operations Support Analyst Relationship Specialty Start Date End Date Sebastian Latham MD [address] [place] [address] PCP - General Family Practice 11/29/20
--- OUTSIDE RECORDS SUMMARY | 2025-02-07 08:03 | XMS_ITS | Encounter Summary ---
Author Organization [facility] Address [address] [place] [address] Care Team Providers Care Turkish Line Attendant Name Role Phone Sebastian Latham MD Primary Care Provider Encounter Details Date Type Department Care Team (Late st Contact Info) Description 01/24/2008 Outpatient Historical HIS MAMM VAN Sintia Quesada MD NO ADDRESS ON FILE Other Screening Mammogram Social History Tobacco Use Types Packs/Day Years Used Date Smoking Tobacco: Never Assessed Comments Unknown Sex and Gender Information Value Date Recorded Sex Assigned at Female 03/02/2024 6:58 PM MOTORCYCLE ENGINE ASSEMBLER Legal Sex Female 5:03 AM MOTORCYCLE ENGINE ASSEMBLER Gender Identity Female 03/02/2024 6:58 PM MOTORCYCLE ENGINE ASSEMBLER Sexual Orientation Not on file documented as of this encounter Plan of Treatment Upcoming Encounters Date Type Department Care Team (Late st Contact Info) Description 03/02/2025 8:30 AM MOTORCYCLE ENGINE ASSEMBLER Office [facility] Oncology and Hematology David Olga [address] [facility] [address] [place] [address] [place] [address] [facility] 120 [place] [address] 03/02/2025 9:00 AM MOTORCYCLE ENGINE ASSEMBLER [facility] [address] [place] [address] [place] [address] [facility] [address] [place] [address] 03/02/2025 9:45 AM MOTORCYCLE ENGINE ASSEMBLER Office Visit [facility] Breast Surgery David Espinoza [address] [place] [address] [place] [address] [address] [place] [address] documented as of this encounter Procedures Procedure Name Priority Date/Time Associated Diagnosis Comments MAMMO SCREENING BILAT Routine 01/24/2008 2:02 PM CDT documented in this encounter Results * MAMMO SCREENING BILAT (01/24/2008 2:02 PM CDT) Anatomical Region Laterality Modality Breast Bilateral Other 01/24/2008 2:02 PM CDT Narrative 01/26/2008 7:12 AM CDT [facility] [address] [place], [place] [address] Admit Date: 01/24/2008 FARNAZ SMITH Sex: F Admit Prov: SINTIA QUESADA Date: 1960 Primary Care Prov: ESTEFANIA HUSSEIN CMRN: [id number] Room: [facility] SSN: [id number] IMAGING SERVICES Ordering Prov: LUCIANO HERNANDEZ Accession Number: [id number] Interpretation BILATERAL SCREENING MAMMOGRAM. Date: 01/24/2008 History: [...] AMK Procedure Note Broderick Santos - 01/26/2008 [facility] [address] [facility] [place], [place] [address] Admit Date: 01/24/2008 FARNAZ SMITH Sex: F Admit Prov: SINTIA QUESADA Date: 1960 Primary Care Prov: ESTEFANIA HUSSEIN CMRN: [id number] Room: [facility] SSN: [id number] IMAGING SERVICES Ordering Prov: LUCIANO HERNANDEZ Interpretation [...] mammogram documented in this encounter Care Teams Turkish Line Attendant Relationship Specialty Start Date End Date Sebastian Latham MD [address] [place] [address] PCP - General Family Practice 11/29/20 documented as of this encounter
--- OUTSIDE RECORDS SUMMARY | 2025-02-07 08:03 | XMS_ITS | Encounter Summary ---
Author Organization [facility] Address [address] [place] [address] Care Team Providers Care Cotton Baler Name Role Phone Sebastian Latham MD Primary Care Provider Encounter Details Date Type Department Care Team (Late st Contact Info) Description 02/02/2001 Outpatient Historical HIS [facility] GAL Hoover, MD Mc [address] [place] [address] Other screening mammogram (Primary Dx) Social History Tobacco Use Types Packs/Day Years Used Date Smoking Tobacco: Never Assessed Comments Unknown Sex and Gender Information Value Date Recorded Sex Assigned at Female 03/02/2024 6:58 PM CEMENT MASON MAINTENANCE Legal Sex Female 5:03 AM CEMENT MASON MAINTENANCE Gender Identity Female 03/02/2024 6:58 PM CEMENT MASON MAINTENANCE Sexual Orientation Not on file documented as of this encounter Plan of Treatment Upcoming Encounters Date Type Department Care Team (Late st Contact Info) Description 03/02/2025 8:30 AM CEMENT MASON MAINTENANCE Office Visit [facility] Oncology and Hematology David Espinoza [address] [address] [place] [address] [address] [place] [address] 03/02/2025 9:00 AM CEMENT MASON MAINTENANCE Appointment [facility] David Espinoza [address] [place] [address] [place] [address] [place] [address] 03/02/2025 9:45 AM CEMENT MASON MAINTENANCE Office Visit [facility] Breast Surgery David Espinoza [address] [place] [address] [place] [address] [place] [address] documented as of this encounter Visit Diagnoses Diagnosis Other screening mammogram- Primary documented in this encounter Care Teams Cotton Baler Relationship Specialty Start Date End Date Sebastian Latham MD [address] [place] [address] PCP - General Family Practice 11/29/20 documented as of this encounter
--- OUTSIDE RECORDS SUMMARY | 2025-02-07 08:03 | XMS_ITS | Clinical Summary ---
Author Organization [facility] Address [address] [place] [address] Care Team Providers Care Criminalist Name Role Phone Unavailable Primary Care Provider [...] Vaccine ( - 2023-2 5 season) 2024 Influenza Adult (#1) 2025 RSV Immunization or 60+ Years (1 - 1-dose 75+ series) 2036 Hepatitis A Vaccines Aged Out No long er eligible based on patient's age to complete this topic Meningococcal B Vaccine Aged Out No l onger eligible based on patient's age to complete this topic Meningococcal Vaccine Aged Out No cristina tim eligible based on patient's age to complete this topic RSV Immunizations Under 20 Months Aged Out No longer eligible based on patient's age to complete this topic
--- OUTSIDE RECORDS SUMMARY | 2025-02-07 08:03 | XMS_ITS | Encounter Summary ---
Author Organization [facility] Address [address] [place] [address] Care Team Providers Care Enterprise Applications Manager Name Role Phone Sebastian Latham MD Primary Care Provider Encounter Details Date Type Department Care Team (Latest Contact Info) Description 02/20/[address] [facility] G[facility] BLDG Conversion, History Lump or mass in breast (Primary Dx) Social History Tobacco Use Types Packs/Day Years Used Date Smoking Tobacco: Never Assessed Comments Unknown Sex and Gender Information Value Date Recorded Sex Assigned at Female 03/02/2024 6:58 PM FLASH WELDING MACHINE OPERATOR Legal Sex Female 5:03 AM FLASH WELDING MACHINE OPERATOR Gender Identity Female 03/02/2024 6:58 PM FLASH WELDING MACHINE OPERATOR Sexual Orientation Not on file documented as of this encounter Plan of Treatment Upcoming Encounters Date Type Department Care Team (Late st Contact Info) Description 03/02/2025 8:30 AM FLASH WELDING MACHINE OPERATOR Office Visit [facility] Oncology and Hematology David Espinoza [address] [facility] [address] [place] [address] [place] [address] [facility] [address] [place] [address] 03/02/2025 9:00 AM FLASH WELDING MACHINE OPERATOR [facility] [address] [place] [address] [place] [address] [place] [address] 03/02/2025 9:45 AM FLASH WELDING MACHINE OPERATOR Office Visit [facility] Breast Surgery David Espinoza [address] [place] [address] [place] [address] [place] [address] documented as of this encounter Visit Diagnoses Diagnosis Lump or mass in breast- Primary documented in this encounter Care Teams Enterprise Applications Manager Relationship Specialty Start Date End Date Sebastian Latham MD [address] [place] [address] PCP - General Family Practice 11/29/20 documented as of this encounter
--- NOTE | 2025-02-07 08:30 | ECG_ITS ---
Test Date: 2025-02-07 08:51:09 Measurements Intervals [place] Rate: 63 P: 46 TN: 107 QRS: 4 QRSD: 93 T: 18 QT: 428 QTc: 440 Interpretive Statements SINUS RHYTHM WITH SHORT TN INTERVAL DELAYED PRECORDIAL R/S TRANSITION BASELINE ARTIFACT- I, II, AVR, AVL BORDERLINE ECG No previous ECG available for comparison Electronically Signed On 02-07-2025 09:14:53 CDT by Maciej Cornejo D.O.
[2025-02-07 08:54] LABS: Hematocrit 38.9 % (37.0-47.0); Hemoglobin 12.5 g/dL (12.0-15.0); Immature Granulocyte Percent A 0.2 % (0-0.5); Lymphocytes Absolute Auto 2.05 K/mm3 (0.9-3.2); Mean Corpuscular HGB Conc 32.1 g/dl (32-36); Mean Corpuscular Hemoglobin 30.2 pg (26-34); Mean Corpuscular Volume 94.0 fl (80-100); Nucleated Red Blood Cells Absolute Auto 0.000 K/mm3 (0.0-0.012); Nucleated Red Blood Cells Perc 0.0 % (0.0-0.2); Platelet Count Result 176 k/mm3 (150-375); Red Blood Count 4.14 M/mm3 (4.2-5.4); White Blood Count 5.4 K/mm3 (4.5-10.0)
[2025-02-07 09:10] LABS: INR 1.0; Prothrombin Time 13.4 Seconds (11.1-14.7)
[2025-02-07 09:11] LABS: Partial Thromboplastin Time 23.4 Seconds (22.3-36.8)
[2025-02-07 09:13] LABS: Alanine Aminotransferase 15 U/L (6-35); Albumin Level 3.7 g/dL (3.5-5.1); Alkaline Phosphatase 60 U/L (38-126); Anion Gap 8 mmol/L (4-12); Aspartate Amino Transferase 20 U/L (14-36); Bilirubin,Total 0.5 mg/dL (0.2-1.3); Blood Urea Nitrogen 10 mg/dL (7-17); Calcium 8.9 mg/dL (8.4-10.2); Carbon Dioxide 25 mmol/L (22-30); Chloride 103 mmol/L (98-107); Estimated Glomerular Filt Rate > 60; Glucose 87 mg/dL (65-110); Potassium 4.1 mmol/L (3.4-5.0); Sodium 136 mmol/L (137-145); Total Protein 7.2 g/dL (6.3-8.2)
== END 2025-02-07 07:52 | disposition home or self-care (01) ==
LOC: ANHSURGERY 07:56
PROVIDERS: PCP Family Medicine; Visit Provider Urology
DX: R94.31 Abnormal electrocardiogram [ECG] [EKG] (principal); R93.89 Abnormal findings on diagnostic imaging of other specified body structures; N81.4 Uterovaginal prolapse, unspecified; N39.3 Stress incontinence (female) (male); I10 Essential (primary) hypertension
CPT/HCPCS: 36415; 80053; 85025; 85610; 85730; 86850; 86900; 86901; 93005

== ENCOUNTER 2025-02-20 00:30 | Day surgery (SDC) | payer BC, SELFPAY ==
--- OUTSIDE RECORDS SUMMARY | 2017-04-01 12:00 | XMS_ITS | Continuity of Care Document ---
Author Organization [facility] [place] Address [address] [place] [address] [address] [place] [address] Phone Care Team Providers Care Tabber Name Role Phone Clyde Rosenbaum Unavailable Unavailable Procedures Procedure Date Therapeutic Exercise Neuromuscular Re-Ed Manual Therapy Hot or Cold Pack Therapeutic Exercise Neuromuscular Re-Ed Manual Therapy Hot or Cold Pack Therapeutic Exercise Neuromuscular Re-Ed Manual Therapy Hot or Cold Pack Therapeutic Exercise Neuromuscular Re-Ed Manual Therapy Hot or Cold Pack Therapeutic Exercise Neuromuscular Re-Ed Manual Therapy Hot or Cold Pack Therapeutic Exercise Neuromuscular Re-Ed Manual Therapy Hot or Cold Pack Therapeutic Exercise Neuromuscular Re-Ed Manual Therapy Therapeutic Exercise Neuromuscular Re-Ed Manual Therapy Hot or Cold Pack Therapeutic Exercise Neuromuscular Re-Ed Manual Therapy Hot or Cold Pack PT Evaluation Moderate Complexity Therapeutic Exercise Neuromuscular Re-Ed Advance Directives Directive Yes / No Effective Date File Name No Information Encounters Encounter Description Practice Location Reason(s) For Visit Diagnoses Date Provider Providers Copied on Encounter [facility] [address], [id number], tel:[phone] [place] No Information Mar- 3 7 Muehl Clyde. [address] [facility], [address], [place], Formerly named [facility], . tel:[phone] Referring Provider: Yrn Latham, [address], [place], [place], [facility]. tel:[phone] [facility] [address], [id number], tel:[phone] [place] No Information Mar-0 6 7 Evi Barnett . Referring Provider: [address], [place], [address]. tel:[phone] [facility] [address], [id number], tel:[phone] [place] No Information 0 7 Evi Barnett . Referring Provider: [address], [place], [address]. tel:[phone] [facility] [address], [id number], tel:[phone] [place] No Information 7 Muehl Clyde. [address] [place] [address], [address], [place], Formerly named [facility], [place]. tel:[phone] Referring Provider: [address], [place], [address]. tel:[phone] [facility], [id number], tel:[phone] [place] No Information 7 Muehl Clyde. [address] [place] [address] [address], [place], [place], Formerly named [facility], [place]. tel:[phone] Referring Provider: [address], [place], [address]. tel:[phone], [id number], tel:[phone] [place] No Information 2-201 7 Johnnyehl Clyde. [address] [place] [address], [address], [place], [place], Formerly named [facility], [place]. tel:[phone] Referring Provider: [address], [place], [address]. tel:[phone], [id number], tel:[phone] [place] No Information 0-201 7 Alin Tang. [address] [place] [address], [address], [place], [place], Formerly named [facility], [place]. tel:[phone] Referring Provider: [address], [place], [address]. tel:[phone], [id number], tel:[phone] [place] No Information 5-201 7 Alin Tang. [address] [place] [address], [address], [place], [address], [place]. tel:[phone] Referring Provider: [address], [place], [address]. tel:[phone], [id number], tel:[phone] [place] No Information 3-201 7 Alin Tang. [address] [place] [address], [address], [place], [place], Formerly named [facility], [place]. tel:[phone] Referring Provider: [address], [place], [address]. tel:[phone] [facility] [place], [address] [facility] [address], [place], [place], [id number], tel:[phone] [place] CervicalgiaTo rticollisPare sthesia of skinRadiculop athy, cervical region 201 7 Evi Bah. . Referring Provider: [address], [place], [address]. tel:[phone] Family History Family Member Type Diagnosis Age At Onset No Information Payers Payer name Insurance type Covered republican ID Rai osman(s) [facility] [id number] Social History Type Description Quantity Date Captured Comments Sex Female Smoking Status No Information Chief Complaint And Reason For Visit No Information Reason For Referral Reason For Referral No Information History Of Present Illness Encounter Date Complaint History Of Prese nt Illness No Information Functional Status Date Functional Assessmen t No Information Instructions Date Instruction Additional Infor mation No Information Assessments Type Assessment Date No Information Patient Care Teams Name Effective Dates (start - stop) Status Members No Information
[2025-02-07 08:09] VITALS: BP 150/89; PULSE 59; RESP 16; TEMP 36.7; O2SAT 98; BMI 30.1
--- NOTE | 2025-02-07 08:24 | PC.NURSE ---
[facility] has started construction of its new state of the art ER which will open Spring 2026. With this, we anticipate parking may be a challenge for some our surgical patients and families. Parking spaces are limited but are available for all Surgical, obstetrics, and ER patients sharing this lot. If you arrive and find you are having a hard time finding a parking space, please note that we understand the challenges, please drive around the hospital and park near Hospital Entrance 1. When you enter this entrance, you can ask a volunteer to direct or take you back to the surgical waiting area to check in. We appreciate everyone?s understanding of these expected challenges while we build for your future. Report to the Outpatient Waiting Room, entrance under the green pavilion located off [address], at time ___0600am____ on date ___02/20/25____. Planned Procedure Time: ___0730am .? Time changes happen often and if your time is changed the preop area will call you the afternoon before. - You and your visitor will be asked to self-screen and do not enter if you have any COVID symptoms. Please call surgeon if you need to reschedule. - A mask is optional within the hospital at this time. Patients may have clear liquids (water, carbonated beverages, clear teas, apple juice) until 3 hours prior to surgery with a maximum of 20 ounces. - No food from midnight until time of surgery and no smoking, or chewing tobacco (or any form of nicotine). No chewing gum, candy or mints. (04:30am) Take only the following medications with a SIP of water on the morning of surgery: ___AMLODIPINE and FLUOXETINE, TYLENOL IF NEEDED DO NOT STOP ANY OF YOUR OTHER PRESCRIPTION MEDICATIONS PRIOR TO SURGERY EXCEPT THE FOLLOWING Hold all vitamins and supplements for 3 days per anesthesiologist. Date of last dose 02/16/25 Medications to discontinue per physician ASPIRIN/NSAIDS/MOTRIN, ALEVE, IBUPROFEN for [address] Hamm Date to take last dose___02/12/25 Please no make-up, nail maori, hairspray, perfume, deodorant, or body powder the day of surgery.? No jewelry (including any body piercings) or valuables the day of surgery, leave them at home.? Please take a shower or bath the night before, or the morning of, surgery with an antibacterial soap. GOLD DIAL ? Wear comfortable, loose fitting clothing.? Bring overnight bag in case you stay. - Jewelry must be removed prior to entering the operating room.? Rings and piercings that are not removed may be cut off. - The hospital will not accept responsibility for valuables.? - Please leave all valuables, including medications, at home the day of surgery. If you are going home after surgery, a licensed wheelchair van driver must drive you home.? - NO public transportation without another adult if you receive anesthesia. - We recommend that an adult stay with you for 24 hours following discharge. - We also recommend that you do not drive, make important decision, drink alcoholic beverages, or take any drugs that were not prescribed by your health care provider for at least 24 hours after your discharge time. Follow any additional instructions given to you from your surgeon. Telephone instructions given to __Patient and asked if any additional questions and then verbalized understanding. Patient advised to call surgeon office or pre surgery nurse liaison [phone] if any additional questions.
--- NOTE | 2025-02-17 08:54 | PM.IMHP ---
H&P: HPI History of Present Illness Date/Time: 02/17/25 08:54 Chief Complaint: POP/CHING Narrative: Farnaz Stoner is a 64-year-old female who presents for evaluation of urologic and urogynecologic issues at the request of her Car Coupler, Dr. Gardenia Mcqueen. She reports noticing a bulge approximately one and a half to two months ago. She describes experiencing a weird sensation followed by the appearance of the bulge. She denies any prior history of similar symptoms and states that during a previous appointment with Dr. Mcqueen in either June or August, no abnormalities were noted. She reports frequent urination and occasional leakage when her bladder is full, particularly when sneezing, coughing, or laughing. She denies any bowel issues or significant problems during sexual activity. A bladder scan was completed to evaluate for urinary retention as possible cause for voiding symptoms. Both urge incontinence and stress incontinence documented on urodynamics Review of Systems Review of Systems: All systems reviewed & are unremarkable except as noted in HPI and below PMFSH Past Medical History Medical History (Updated 02/17/25 @ 08:57 by Abhinav Hamm MD) Status post hysteroscopy Depression with anxiety Osteoporosis Vitamin B12 deficiency Breast cancer Age related osteoporosis Vitamin D deficiency Essential (primary) hypertension Invasive lobular carcinoma of breast, stage 1 History of colon polyps Chronic neck and back pain Eczema Major depressive disorder, recurrent episode, unspecified Surgical History Surgical History History of lumpectomy of right breast 11/2020 History of cholecystectomy 06/2001 Family History Family History Father Family history of lung cancer, Onset Age: 73 Mother Family history of coronary artery disease, Onset Age: 63 Social History Social History (Updated 01/31/25 @ 08:39 by Ayaka Bustillos CMA) Smoking status: Never smoker Second hand tobacco smoke exposure: Yes Alcohol intake: current Drinks per week: 2 Alcohol use details: socially Substance use: never Substance use type: does not use Do You Feel Safe in your Home?: Yes Lack of Transportation: No Lack of Food: Never True Current Housing: I Have Housing Concerned About Future Housing: No Difficulty Paying Gas/Electric Bills: No Difficulty Paying for Meds: No Currently Unemployed: No Education: Bachelor's Degree Difficulty w/ Childcare or Family Care: No Living arrangements: with family Additional living arrangements comments: Occupation/Education: retired 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 Gender identity (if verbalized by the patient): Female Sexual Orientation (if Verbalized by the Patient): Straight or Heterosexual Spiritual care concerns: No Meds Home Medications and Allergies Home Medications ?Medication ?Instructions ?Recorded ?Confirmed ?Type alendronate 70 mg tablet 70 mg PO WEEKLY 03/04/22 02/07/25 History tamoxifen 20 mg tablet 20 mg PO DAILY 08/24/23 02/07/25 History fluoxetine 10 mg capsule 10 mg PO DAILY #90 caps 03/07/24 02/07/25 Rx triamcinolone acetonide 0.1 % 1 applic topical BID PRN rash #30 03/07/24 02/07/25 Rx topical cream grams cyanocobalamin (vitamin B-12) 1,000 mcg sublingual 2XW #90 tabs 03/15/24 02/07/25 Rx 1,000 mcg sublingual tablet amlodipine 5 mg tablet 5 mg PO DAILY #90 tabs 05/06/24 02/07/25 Rx calcium carbonate (Calcium 500) 500 mg PO DAILY 01/04/25 02/07/25 History acetaminophen 500 mg tablet 1,000 mg PO Q4-6H PRN pain 02/07/25 02/07/25 History hydroxyzine HCl 25 mg tablet 25 mg PO TID PRN anxiety 02/07/25 02/07/25 History Allergies Allergy/AdvReac Type Severity Reaction Status Date / Time No Known Allergies Allergy Verified 02/07/25 08:04 Exam Narrative: The physical exam findings are as follows: Note:? - General appearance: ?No acute distress. - Building nutrition: ?Well-developed, well-nourished. - Integumentary: ?Overall skin examination reveals no significant rashes. - Head and Neck: ?Head Normocephalic atraumatic, Trachea Midline, Goiter None, Eye Extraocular movements intact. - Chest and Lung: ?Quiet and even respiratory effort without the use of accessory muscles of respiration, no cough or grunting. - Breast: ?Breast exam not indicated. - Cardiovascular: ?Lower extremity edema: trace, Lower extremity varicosities: none. - Abdomen: ?Inspection Abdomen flat, Incisions none, Palpation soft, non-rigid, no guarding. Female genitourinary: - External genitalia: Vulvar hair distribution N/A, Introitus No discharge. - Urethral characteristics: Orthotopic, non-tender, no diverticulum, stress incontinence absent, mobility hypermobility. - Speculum and bimanual: - Cystocele none. - Vaginal [place] +1. - Rectocele none. - Vaginal mucosa healthy. - Rectal: Normal anus and perineum, EMMA not indicated. - Neurologic: ?General Alert and oriented x3. Active movement of all 4 extremities. - Pelvic floor muscle tone: ?normal. - Pelvic floor muscle tenderness: ?absent. - Lymphatic: ?No visible lymphadenopathy. Assessment and Plan Assessment and plan (1) Cystocele with uterine prolapse: Code(s): N81.4 - Uterovaginal prolapse, unspecified Status: Acute (2) CHING (stress urinary incontinence, female): Code(s): N39.3 - Stress incontinence (female) (male) Status: Acute Plan - We discussed the treatment options for stress urinary incontinence, including pelvic floor muscle rehabilitation, transurethral bulking agents, and mid-urethral sling procedures. She is most interested in the latter. ? - We discussed the alternatives, benefits, and risks. We discuss specifically the risks of bleeding, infection, failure to correct incontinence, damage to the urinary tract, vaginal mesh extrusion, urinary tract mesh erosion, obstructive voiding requiring a secondary procedure, de raquel or worsening irritative voiding symptoms, post-operative hip and leg pain, and the risk of anesthesia. We also discussed that treatment of stress incontinence is unlikely to improve overactive bladder symptoms if present. She was also counseled on post-operative activity restrictions. She wishes to proceed. ? - A laparoscopic/Robotic sacrocolpopexy with robotic assistance is planned to address uterine prolapse. This procedure will involve the removal of the uterus and the use of mesh to suspend the vagina to the tailbone. ? - A concomitant mid-urethral sling procedure is planned to address stress urinary incontinence. ? - Urodynamic testing will be scheduled to evaluate urinary leakage and confirm the need for the sling procedure. ? - Written information regarding the procedures has been provided.
[2025-02-20] VITALS (11 sets, daily range): BP systolic 108–140; BP diastolic 56–83; PULSE 68–94; RESP 12–18; TEMP 36.2–37.2; O2SAT 93–100
--- OUTSIDE RECORDS SUMMARY | 2025-02-20 00:33 | XMS_ITS | Clinical Summary ---
Author Organization [facility] Address [address] [place] [address] Care Team Providers Care Shearer Printed Circuit Boards Name Role Phone Unavailable Primary Care Provider [...] Vaccines (1 of 2) 12/20/2011 COVID-19 Vaccine (2024-2 6 season) 2024 Influenza Adult (#1) 2025 RSV [...]
--- OUTSIDE RECORDS SUMMARY | 2025-02-20 00:33 | XMS_ITS | Clinical Summary ---
Author Organization [facility] Address [address] [facility] [place] [address] Care Team Providers Care Curer Acid Drum Name Role Phone Sebastian Latham MD Primary [...] on file Legal Sex Female 5:29 AM ENGINEER BOOSTER AND EXHAUSTER Gender Identity Not on file Sexual Orientation [...] Cervical Cancer Screening 07/03/2020 07/04/2019 Covid-19 Vaccine (2024- season) 2024 08/29/2021, 02/15/2021, 06/25/2020, Additional history exists Influenza Vaccine (#1) 2024 , 02/07/2021, 01/12/2020 Pneumococcal vaccine <65 Aged Out No longer eligible based on patient's age to complete this topic [place] [employer] [place] [employer] [place] Care Teams Curer Acid Drum Relationship Specialty Start Date End Date Sebastian Lathma MD PCP - General 05/12/17
--- OUTSIDE RECORDS SUMMARY | 2025-02-20 00:33 | XMS_ITS | Encounter Summary ---
Author Organization [facility] Address [address] [place] [address] Care Team Providers Care Chief Administrative Officer Name Role Phone Sebastian Latham MD Primary Care Provider Encounter Details Date Type Department Care Team (Late st Contact Info) Description 02/02/2001 Outpatient Historical HIS [facility] Hoover, MD [address] [place] [address] Other screening mammogram (Primary Dx) Social History Tobacco Use Types Packs/Day Years Used Date Smoking Tobacco: Never Assessed Comments Unknown Sex and Gender Information Value Date Recorded Sex Assigned at Female 03/02/2024 6:58 PM SURVEY WORKER Legal Sex Female 5:03 AM SURVEY WORKER Gender Identity Female 03/02/2024 6:58 PM SURVEY WORKER Sexual Orientation Not on file documented as of this encounter Plan of Treatment Upcoming Encounters Date Type Department Care Team (Late st Contact Info) Description 03/09/2025 12:00 PM SURVEY WORKER Appointment [facility] David Espino[place] [address] [place] [address] [place] [address] [place] [address] 03/09/2025 1:05 PM SURVEY WORKER Office Visit [facility] Breast Surgery David Espinoza [address] [place] [id number] [place] [address] [facility] [address] [place] [address] 03/09/2025 2:00 PM SURVEY WORKER Office Visit [facility] Oncology and Hematology David Espinoza [address] [facility] [address] [place] [address] [place] [address] [facility] [address] [place] [address] documented as of this encounter Visit Diagnoses Diagnosis Other screening mammogram- Primary documented in this encounter Care Teams Chief Administrative Officer Relationship Specialty Start Date End Date Sebastian Latham MD [address] [place] [id number] PCP - General Family Practice 11/29/20 documented as of this encounter
--- OUTSIDE RECORDS SUMMARY | 2025-02-20 00:33 | XMS_ITS | Encounter Summary ---
Author Organization [facility] Address [address] [place] [address] Care Team Providers Care Aboriginal Liaison Officer Name Role Phone Sebastian Latham MD Primary Care Provider Encounter Details Date Type Department Care Team (Latest Contact Info) Description 02/04/2000 Outpatient Historical HIS [facility] G[facility] BLDG Conversion, History Other screening mammogram (Primary Dx) Social History Tobacco Use Types Packs/Day Years Used Date Smoking Tobacco: Never Assessed Comments Unknown Sex and Gender Information Value Date Recorded Sex Assigned at Female 03/02/2024 6:58 PM CORPORATE QUALITY ENGINEER Legal Sex Female 5:03 AM CORPORATE QUALITY ENGINEER Gender Identity Female 03/02/2024 6:58 PM CORPORATE QUALITY ENGINEER Sexual Orientation Not on file documented as of this encounter Plan of Treatment Upcoming Encounters Date Type Department Care Team (Late st Contact Info) Description 03/09/2025 12:00 PM CORPORATE QUALITY ENGINEER [facility] [address] [place] [address] [place] [address] [address] [place] [address] 03/09/2025 1:05 PM CORPORATE QUALITY ENGINEER Office Visit [facility] Breast Surgery David Espinoza [address] [place] [address] [place] [address] [address] [place] [address] 03/09/2025 2:00 PM CORPORATE QUALITY ENGINEER Office Visit [facility] [address] [address] [place] [address] [address] documented as of this encounter Visit Diagnoses Diagnosis Other screening mammogram- Primary documented in this encounter Care Teams Aboriginal Liaison Officer Relationship Specialty Start Date End Date Sebastian Latham MD [address] [place] [address] PCP - General Family Practice 11/29/20 documented as of this encounter
--- OUTSIDE RECORDS SUMMARY | 2025-02-20 00:33 | XMS_ITS | Clinical Summary ---
Author Organization [facility] Address [address] [facility] [place] [address] Care Team Providers Care Mat Worker Name Role Phone Sebastian Latham MD Primary Care Provider Source Comments [facility],non-owned Affiliates and Associated Physician Practices is amultiple site organization consisting of ambulatory clinics and hospital sitesin [place] and [place]. This disclosure is being madepursuant to the Care Everywhere program and may not contain all information available regarding this patient. Last updated 18.[facility] Allergies No known active allergies Medications * [...] on file Legal Sex Female 5:22 PM VARNISHER Gender Identity Not on file Sexual Orientation [...] Detected Not Detected 07/08/2019 9:24 AM CDT [facility] High Risk Human Papilloma Interp 07/08/2019 9:24 AM CDT [facility] Comment:High Risk Human Carmelo lloma Virus was Not Detected. Pathology/Cytolo gy MISCELLANEOUS SAMPLES / Unknown 07/04/2019 9:35 AM CDT 07/05/2019 12:21 PM CDT Narrative [facility] - 07/08/2019 9:24 AM [...] ORDERABLES F inal Result Performing Organization Address City/State/[facility] Co de Phone Number [facility] [address] [place] [address], [facility] [phone] from Last 3 Months or Most Recently Relevant to Health Maintenance Insurance [employer] Care Teams Mat Worker Relationship Specialty Start Date End Date Sebastian Latham MD [address] [place] [address] PCP - General 10/19/17
--- OUTSIDE RECORDS SUMMARY | 2025-02-20 00:33 | XMS_ITS | Clinical Summary ---
Author Organization [facility] Address [address] [place] [address] Phone Care Team Providers Care Instructor Psychiatric Aide Name Role Phone Sebastian Latham MD Primary Care Provider Allergies No known active allergies Medications triamcinolone acetonide (KENALOG) 0.1 % Cream triamcinolone acetonide 0.1 % topical cream APPLY A THIN LAYER OF CREAM TOPICALLY TWICE DAILY TO AFFECTED AREA(S) ON HANDS AND LEGS Active amLODIPine (NORVASC) 5 mg tablet 1 Active FLUoxetine (PROzac) 10 mg capsule Take [...] 30 min 12 Tablet 3 4 Active tamoxifen (NOLVADEX) 20 mg tabletIndicati ons:Malignant neoplasm of lower-outer quadrant of right breast of female, estrogen receptor positive (CMS/HCC) TAKE 1 TABLET BY MOUTH EVERY DAY 90 Tablet 3 5 Active Active Problems Problem Noted Date Diagnosed Date 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 Malignant neoplasm of lower- outer quadrant of right breast of female, estrogen receptor positive 10/23/2020 Overview (06/20/2021): Stage: Clinical T1 N0; pT1 N0 Date of diagnosis: 10/09/2020 Diagnosis: RIGHT 8 mm ILC, 0/2 LN ER positive MI positive HER-2 negative Surgeon: Venkatesh Surgery: 12/03/2020 right lump/SLN Medical Oncologist: Florinda Chemotherapy: none Radiation Oncologist: Lorna MeyersDwight) Radiation: Hormonal therapy: Letrozole 2.5mg daily - started 03/10 Cervical radiculopathy, chronic 07/04/2019 Chronic low back pain without sciatica Episode of recurrent major depressive disorder 0 07/04/2019 Lateral epicondylitis 07/04/2019 Eczema 10/06/2017 Lateral epicondylitis of right elbow 10/06/2017 Obesity with body mass index 30 or greater 06/05 Weight gain 11/03/2014 Essential (primary) hypertension 09/02/2010 Overview (03/10/2024): Description: Hypertension Encounters Date Type Department Care Team Description 02/08/2025 External Device Data STL ABSTRACTION Provider, Abstract 01/24/2025 External Device Data STL ABSTRACTION Provider, Abstract 01/19/2025 [facility] On[facility] and Hematology Matt Espinoza [address] [place] [address] Michelle Chong PA Malignant neoplasm of lower-outer quadrant of right breast of female, estrogen receptor positive ([facility]) 12/27/2024 External Device Data STL ABSTRACTION Provider, Abstract 12/20/2024 External Device Data STL ABSTRACTION Provider, Abstract 12/06/2024 External Device Data STL ABSTRACTION Provider, Abstract 12/06/2024 External Device Data STL ABSTRACTION Provider, Abstract 11/29/2024 External Device Data STL ABSTRACTION Provider, Abstract 11/23/2024 External Device Data STL ABSTRACTION Provider, Abstract from Last 3 Months Immunizations Immunization Administration Dates Next Due (Excellence4u)(12 YR UP) COVID-19 VACCINE - EMERGENCY USE AUTHORIZATION, MRNA, [id number](PF) 30 MCG/0.3 ML IM SUSP 06/25/2020,05/28/2020 Family [...] Sex Assigned at Female 03/02/2024 6:58 PM MILLWRIGHT Legal Sex Female 5:03 AM MILLWRIGHT Gender Identity Female 03/02/2024 6:58 PM MILLWRIGHT Sexual Orientation Not on file Occupation Industry [...] st Contact Info) Description 03/09/2025 12:00 PM MILLWRIGHT Appointment [facility] Matt Espino[place] [address] [place] [address] [place] [address] [facility] [address] [place] [address] 03/09/2025 1:05 PM MILLWRIGHT Office Visit [facility] Breast Surgery Matt Espinoza [address] [facility] [address] [place] [address] [place] [address] [facility] [address] [place] [address] 03/09/2025 2:00 PM MILLWRIGHT Office Visit [facility] Oncology and Hematology Matt Espinoza [address] [facility] [address] [place] [address] [place] [address] [facility] [address] [place] [address] Health Maintenance Due Date Last [...] series) 2036 Medical Devices Implanted Type Area Business Assistant Device Identifier Shelf Expiration Date Model / Serial / Lot Inbound Sales Advisor Clip Surgiclip Ii Mauri 9.75in [id number] - [id number] Implanted:Qty: 1 on 12/03/2020 by Tammy Riddle MD at [facility] Matt Espinoza Clip Right: Axilla [employer] - COVIDIEN 07/18/2025 [id number] / / [id number] Procedures Procedure Name Priority Date/Time Associated Diagnosis Comments MAMMO 3D CHEY DIAGNOSTIC BILAT W OR WO CAD Routine 02/26/2024 1:04 PM MILLWRIGHT Malignant neoplasm of lower-outer quadrant of right breast of female, estrogen receptor positive (CMS/HCC) from Last 3 Months or Most Recently Relevant to Health Maintenance Results * MAMMO DIAG BILAT 3D CHEY W OR WO CAD (02/26/2024 1:04 PM MILLWRIGHT) Anatomical Region Laterality Modality Breast Bilateral Mammography 02/26/2024 1:04 PM MILLWRIGHT Impressions 02/26/2024 1:46 PM MILLWRIGHT IMPRESSION: No suspicious finding within either breast. Annual mammography recommended. BI-RADS Category 2: Benign findings. Yessenia Espinoza Narrative 02/26/2024 1:46 PM MILLWRIGHT EXAM: BILATERAL DIGITAL DIAGNOSTIC MAMMOGRAPHY WITH TOMOSYNTHESIS [...] Most Recently Relevant to Health Maintenance Insurance [facility] BLUE [employer]IONS Care Teams Instructor Psychiatric Aide Relationship Specialty Start Date End Date Sebastian Latham MD [address] [place] [address] PCP - General Family Practice 11/29/20
--- OUTSIDE RECORDS SUMMARY | 2025-02-20 00:33 | XMS_ITS | Encounter Summary ---
Author Organization [employer] Address [address] [place] [address] Care Team Providers Care Authorization Representative Name Role Phone Sebastian Latham MD Primary [...] Sex Assigned at Female 03/02/2024 6:58 PM WARDROBE CUSTODIAN Legal Sex Female 5:03 AM WARDROBE CUSTODIAN Gender Identity Female 03/02/2024 6:58 PM WARDROBE CUSTODIAN Sexual Orientation Not on file documented as of this encounter Plan of Treatment Upcoming Encounters Date Type Department Care Team (Late st Contact Info) Description 03/09/2025 12:00 PM WARDROBE CUSTODIAN Appointment [facility] David Espinoza [address] [place] [address] [place] [address] [place] [address] 03/09/2025 1:05 PM WARDROBE CUSTODIAN Office Visit [facility] Breast Surgery David Espinoza [address] [place] [address] [place] [address] [place] [address] 03/09/2025 2:00 PM WARDROBE CUSTODIAN Office Visit [facility] Oncology and Hematology [place] [address] [facility] [address] [place] [address] [place] [address] [facility] [address] [place] [address] documented as of this encounter Visit Diagnoses Diagnosis Other screening mammogram- Primary documented in this encounter Care Teams Authorization Representative Relationship Specialty Start Date End Date Sebastian Latham MD [address] [place] [address] PCP - General Family Practice 11/29/20 documented as of this encounter
--- OUTSIDE RECORDS SUMMARY | 2025-02-20 00:33 | XMS_ITS | Encounter Summary ---
Author Organization [facility] Address [address] [place] [address] Care Team Providers Care Air Cargo Ground Operations Supervisor Name Role Phone Sebastian Latham MD [...] Sex Assigned at Female 03/02/2024 6:58 PM LACQUER SPRAYER Legal Sex Female 5:03 AM LACQUER SPRAYER Gender Identity Female 03/02/2024 6:58 PM LACQUER SPRAYER Sexual Orientation Not on file documented as of this encounter Plan of Treatment Upcoming Encounters Date Type Department Care Team (Late Contact Info) Description 03/09/2025 12:00 PM LACQUER SPRAYER Appointment [facility] David Espinoza [address] [place] [address] [place] [address] [place] [address] 03/09/2025 1:05 PM LACQUER SPRAYER Office Visit [facility] Breast Surgery David Espinoza [address] [place] [address] [place] [address] [address] [place] [address] 03/09/2025 2:00 PM LACQUER SPRAYER Office Visit [facility] Oncology and Hematology [facility] [address] [facility] [address] [place] [address] [place] [address] [facility] [address] [place] [address] documented as of this encounter Visit Diagnoses Diagnosis Other screening mammogram- Primary documented in this encounter Care Teams Air Cargo Ground Operations Supervisor Relationship Specialty Start Date End Date Sebastian Latham MD [address] [place] [address] PCP - General Family Practice 11/29/20 documented as of this encounter
--- OUTSIDE RECORDS SUMMARY | 2025-02-20 00:33 | XMS_ITS | Encounter Summary ---
Author Organization [facility] [facility] Address [address] [place] [address] Care Team Providers Care Chartered Accountant Name Role Phone Sebastian Latham MD Primary [...] Sex Assigned at Female 03/02/2024 6:58 PM STRIKE PLANNING APPLICATIONS Legal Sex Female 5:03 AM STRIKE PLANNING APPLICATIONS Gender Identity Female 03/02/2024 6:58 PM STRIKE PLANNING APPLICATIONS Sexual Orientation Not on file documented as of this encounter Plan of Treatment Upcoming Encounters Date Type Department Care Team (Late Contact Info) Description 03/09/2025 12:00 PM STRIKE PLANNING APPLICATIONS Appointment [facility] David Espinoza [address] [place] [address] [place] [address] [address] [place] [address] 03/09/2025 1:05 PM STRIKE PLANNING APPLICATIONS Office Visit [facility] Breast Surgery David Espinoza [address] [place] [address] [place] [address] [address] [place] [address] 03/09/2025 2:00 PM STRIKE PLANNING APPLICATIONS Office Visit [facility] Oncology and Hematology [facility] [address] [facility] [address] [place] [address] [place] [address] [facility] [address] [place] [address] documented as of this encounter Visit Diagnoses Diagnosis Other screening mammogram- Primary documented in this encounter Care Teams Chartered Accountant Relationship Specialty Start Date End Date Sebastian Latham MD [address] [place] [address] PCP - General Family Practice 11/29/20 documented as of this encounter
--- OUTSIDE RECORDS SUMMARY | 2025-02-20 00:33 | XMS_ITS | Encounter Summary ---
Author Organization [employer] Address [address] [place] [address] Care Team Providers Care Supervisor Inspection Name Role Phone Sebastian Latham MD Primary [...] Sex Assigned at Female 03/02/2024 6:58 PM SLIP COVER SEWER Legal Sex Female 5:03 AM SLIP COVER SEWER Gender Identity Female 03/02/2024 6:58 PM SLIP COVER SEWER Sexual Orientation Not on file documented as of this encounter Plan of Treatment Upcoming Encounters Date Type Department Care Team (Late st Contact Info) Description 03/09/2025 12:00 PM SLIP COVER SEWER Appointment [facility] David Espinoza [address] [place] [address] [place] [address] [place] [address] 03/09/2025 1:05 PM SLIP COVER SEWER Office Visit [facility] Breast Surgery David Espinoza [address] [place] [address] [place] [address] [address] [place] [address] 03/09/2025 2:00 PM SLIP COVER SEWER Office Visit [facility] Oncology and Hematology David [place] [address] [facility] [address] [place] [address] [place] [address] [facility] [address] [address] documented as of this encounter Visit Diagnoses Diagnosis Other screening mammogram- Primary documented in this encounter Care Teams Supervisor Inspection Relationship Specialty Start Date End Date Sbeastian Latham MD [address] [place] [address] PCP - General Family Practice 11/29/20 documented as of this encounter
--- OUTSIDE RECORDS SUMMARY | 2025-02-20 00:33 | XMS_ITS | Encounter Summary ---
Author Organization [employer] Address [address] [place] [address] Care Team Providers Care Production Controller Name Role Phone Sebastian Latham MD Primary Care Provider Encounter Details Date Type Department Care Team (Late st Contact Info) Description 01/23/2005 Outpatient Historical HIS MAMM Elda Dow MD NO ADDRESS ON FILE SCREENING MAMM-MAILG NEOPL NEC (Primary Dx) Social History Tobacco Use Types Packs/Day Years Used Date Smoking Tobacco: Never Assessed Comments Unknown Sex and Gender Information Value Date Recorded Sex Assigned at Female 03/02/2024 6:58 PM PACKING LINE OPERATOR Legal Sex Female 5:03 AM PACKING LINE OPERATOR Gender Identity Female 03/02/2024 6:58 PM PACKING LINE OPERATOR Sexual Orientation Not on file documented as of this encounter Plan of Treatment Upcoming Encounters Date Type Department Care Team (Late Contact Info) Description 03/09/2025 12:00 PM PACKING LINE OPERATOR Appointment [facility] David Espinoza [address] [place] [address] [place] [address] [address] [place] [address] 03/09/2025 1:05 PM PACKING LINE OPERATOR Office Visit [facility] Breast Surgery David Espinoza [address] [place] [address] [place] [address] [address] [place] [address] 03/09/2025 2:00 PM PACKING LINE OPERATOR Office Visit [facility] Oncology and Hematology [facility] [address] [facility] [address] [place] [address] [place] [address] [facility] [address] [place] [address] documented as of this encounter Visit Diagnoses Diagnosis Other screening mammogram- Primary documented in this encounter Care Teams Production Controller Relationship Specialty Start Date End Date Sebastian Latham MD [address] [place] [address] PCP - General Family Practice 11/29/20 documented as of this encounter
--- OUTSIDE RECORDS SUMMARY | 2025-02-20 00:33 | XMS_ITS | Encounter Summary ---
Author Organization [employer] Address [address] [place] [address] Care Team Providers Care Registered Nurse Practitioner Name Role Phone Sebastian Latham MD Primary Care Provider Encounter Details Date Type Department Care Team (Late st Contact Info) Description 01/18/2002 Outpatient Historical HIS MAMM Mc Weeks MD [address] [place] [address] SCREENING MAMM-MAILG NEOPL-OTHER (Primary Dx) Social History Tobacco Use Types Packs/Day Years Used Date Smoking Tobacco: Never Assessed Comments Unknown Sex and Gender Information Value Date Recorded Sex Assigned at Female 03/02/2024 6:58 PM DESPATCHING AND RECEIVING CLERK Legal Sex Female 5:03 AM DESPATCHING AND RECEIVING CLERK Gender Identity Female 03/02/2024 6:58 PM DESPATCHING AND RECEIVING CLERK Sexual Orientation Not on file documented as of this encounter Plan of Treatment Upcoming Encounters Date Type Department Care Team (Late st Contact Info) Description 03/09/2025 12:00 PM DESPATCHING AND RECEIVING CLERK Appointment [facility] [place] David Espinoza [address] [place] [address] [place] [address] [address] [place] [address] 03/09/2025 1:05 PM DESPATCHING AND RECEIVING CLERK Office Visit [facility] Breast Surgery David Espinoza [address] [place] [address] [place] [address] [facility] [address] [place] [address] 03/09/2025 2:00 PM DESPATCHING AND RECEIVING CLERK Office Visit [facility] Oncology [facility] Hemat[facility] [address] [facility] [address] [place] [address] [place] [address] [facility] [address] [place] [address] documented as of this encounter Visit Diagnoses Diagnosis Other screening mammogram- Primary documented in this encounter Care Teams Registered Nurse Practitioner Relationship Specialty Start Date End Date Sebastian Latham MD [address] [facility] [address] [place] [address] PCP - General Family Practice 11/29/20 documented as of this encounter
--- OUTSIDE RECORDS SUMMARY | 2025-02-20 00:33 | XMS_ITS | Encounter Summary ---
Author Organization [facility] Address [address] [place] [address] Care Team Providers Care Instrument Specialist Name Role Phone Sebastian Latham MD [...] Sex Assigned at Female 03/02/2024 6:58 PM EDGING MACHINE SETTER Legal Sex Female 5:03 AM EDGING MACHINE SETTER Gender Identity Female 03/02/2024 6:58 PM EDGING MACHINE SETTER Sexual Orientation Not on file documented as of this encounter Plan of Treatment Upcoming Encounters Date Type Department Care Team (Late st Contact Info) Description 03/09/2025 12:00 PM EDGING MACHINE SETTER Appointment [facility] [place] David Espinoza [address] [place] [address] [place] [address] [place] [address] 03/09/2025 1:05 PM EDGING MACHINE SETTER Office Visit [facility] Breast Surgery David Espinoza [address] [place] [address] [place] [address] [place] [address] 03/09/2025 2:00 PM EDGING MACHINE SETTER Office Visit [facility] Oncology and Hematology David Espinoza [address] [address] [place] [address] [facility] [address] [place] [address] documented as of this encounter Procedures Procedure Name Priority Date/Time Associated Diagnosis Comments MAMMO SCREENING BILAT Routine 01/24/2008 2:02 PM CDT documented in this encounter Results * MAMMO SCREENING BILAT (01/24/2008 2:02 PM CDT) Anatomical Region Laterality Modality Breast Bilateral Other 01/24/2008 2:02 PM CDT Narrative 01/26/2008 7:12 AM CDT [place] [address] [place], [place] [address] Admit Date: 01/24/2008 FARNAZ SMITH Sex: F Admit Prov: SINTIA QUESADA Date: 1960 Primary Care Prov: ESTEFANIA HUSSEIN CMRN: [id number] Room: [facility] SSN: [id number] IMAGING SERVICES Ordering Prov: LUCIANO HERNANDEZ Accession Number: [id number] Interpretation BILATERAL SCREENING MAMMOGRAM. Date: 01/24/2008 History: [...] AMK Procedure Note Broderick Santos - 01/26/2008 [facility] [address] [facility] [address] [place], [place] [address] Admit Date: 01/24/2008 FARNAZ SMITH Sex: F Admit Prov: SINTIA QUESADA Date: 1960 Primary Care Prov: ESTEFANIA HUSESIN CMRN: [id number] Room: [facility] SSN: [id number] IMAGING SERVICES Ordering Prov: LUCIANO HERNANDEZ Interpretation [...] mammogram documented in this encounter Care Teams Instrument Specialist Relationship Specialty Start Date End Date Sebastian Latham MD [address] [place] [address] PCP - General Family Practice 11/29/20 documented as of this encounter
--- OUTSIDE RECORDS SUMMARY | 2025-02-20 00:33 | XMS_ITS | Encounter Summary ---
Author Organization [facility] Address [address] [place] [address] Care Team Providers Care Walking Dragline Operator Name Role Phone Sebastian Latham MD Primary Care Provider Encounter Details Date Type Department Care Team (Latest Contact Info) Description 02/20/1998 Outpatient Historical HIS [facility] GAL BLDG Conversion, History Lump or mass in breast (Primary Dx) Social History Tobacco Use Types Packs/Day Years Used Date Smoking Tobacco: Never Assessed Comments Unknown Sex and Gender Information Value Date Recorded Sex Assigned at Female 03/02/2024 6:58 PM CUSTOMER SERVICE PROFESSIONAL Legal Sex Female 5:03 AM CUSTOMER SERVICE PROFESSIONAL Gender Identity Female 03/02/2024 6:58 PM CUSTOMER SERVICE PROFESSIONAL Sexual Orientation Not on file documented as of this encounter Plan of Treatment Upcoming Encounters Date Type Department Care Team (Late st Contact Info) Description 03/09/2025 12:00 PM CUSTOMER SERVICE PROFESSIONAL Appointment [facility] [place] [address] [place] [address] [place] [address] [address] [place] [address] 03/09/2025 1:05 PM CUSTOMER SERVICE PROFESSIONAL Office Visit [facility] Breast Surgery David Espinoza [address] [place] [address] [place] [address] [address] [place] [address] 03/09/2025 2:00 PM CUSTOMER SERVICE PROFESSIONAL Office Visit [facility] Oncology and Hematology [facility] [address] [address] [place] [address] [address] documented as of this encounter Visit Diagnoses Diagnosis Lump or mass in breast- Primary documented in this encounter Care Teams Walking Dragline Operator Relationship Specialty Start Date End Date Sebastian Latham MD [address] [place] [address] PCP - General Family Practice 11/29/20 documented as of this encounter
[2025-02-20] MEDS: ACETAMINOPHEN 500 MG TABLET 1000 MG PO (06:55)
--- NOTE | 2025-02-20 07:03 | WPDHPUPDATE1 ---
History and Physical Update Update Date/Time: 02/20/25 07:03 History and Physical has been reviewed, including an updated exam of the patient. There are NO changes in the patient's condition. Risks, benefits, and alternatives have been discussed and questions answered. Patient agrees to proceed with robotic assisted supracervical hysterectomy with bilateral salpingo-oophorectomy
[2025-02-20] MEDS: KETOROLAC 15 MG/ML VIAL (*BKC) IV PUSH ×2 (07:15→12:26)
[2025-02-20] MEDS: LACTATED RINGERS 1,000 ML 30 ML IV CONT ×2 (07:15→10:12)
--- NOTE | 2025-02-20 07:15 | WPDHPUPDATE1 ---
History and Physical Update Update Date/Time: 02/20/25 07:15 History and Physical has been reviewed, including an updated exam of the patient. There are NO changes in the patient's condition. Risks, benefits, and alternatives have been discussed and questions answered. Patient agrees to proceed with procedure.
--- NOTE | 2025-02-20 07:22 | WPDANESEPPF ---
Anes - Initial Pre Proc Eval Procedure: Operation Date: 02/20/25 07:30 Proposed Procedures p Robotic Sacrocolpopexy, Urethral Sling - Abhinav Hamm MD s Robotic Supracervical Hysterectomy With Bilateral Salpingectomy - Gardenia Mcqueen MD Date/Time: 02/20/25 07:22 Surgeon: Abhinav Hamm MD Pre Op Diagnosis: uterine prolapse, stress incont Patient Data Age: 64 Gender: F Height: 1.7 m Weight: 87.2 kg Last Vital Signs Temp 98.0 F 02/07/25 08:09 Pulse 59 L 02/07/25 08:09 Resp 16 02/07/25 08:09 BP 150/89 H 02/07/25 08:09 Pulse Ox 98 02/07/25 08:09 O2 Del Method Room Air 02/07/25 08:09 Allergies Allergy/AdvReac Type Severity Reaction Status Date / Time No Known Allergies Allergy Verified 02/07/25 08:04 Home Medications ?Medication ?Instructions ?Recorded ?Confirmed ?Type alendronate 70 mg tablet 70 mg PO WEEKLY 03/04/22 02/07/25 History tamoxifen 20 mg tablet 20 mg PO DAILY 08/24/23 02/07/25 History fluoxetine 10 mg capsule 10 mg PO DAILY #90 caps 03/07/24 02/07/25 Rx triamcinolone acetonide 0.1 % 1 applic topical BID PRN rash #30 03/07/24 02/07/25 Rx topical cream grams cyanocobalamin (vitamin B-12) 1,000 mcg sublingual 2XW #90 tabs 03/15/24 02/07/25 Rx 1,000 mcg sublingual tablet amlodipine 5 mg tablet 5 mg PO DAILY #90 tabs 05/06/24 02/07/25 Rx calcium carbonate (Calcium 500) 500 mg PO DAILY 01/04/25 02/07/25 History acetaminophen 500 mg tablet 1,000 mg PO Q4-6H PRN pain 02/07/25 02/07/25 History hydroxyzine HCl 25 mg tablet 25 mg PO TID PRN anxiety 02/07/25 02/07/25 History Patient hx anesthesia problems: none Family hx anesthesia problems: none Results Review: All pre-operative results and documents have been reviewed as part of the pre-operative evaluation. [facility] Past Medical History Medical History Status post hysteroscopy Depression with anxiety Osteoporosis Vitamin B12 deficiency Breast cancer Age related osteoporosis Vitamin D deficiency Essential (primary) hypertension Invasive lobular carcinoma of breast, stage 1 History of colon polyps Chronic neck and back pain Eczema Major depressive disorder, recurrent episode, unspecified Surgical History Surgical History History of lumpectomy of right breast 11/2020 History of cholecystectomy 06/2001 Family History Family History Father Family history of lung cancer, Onset Age: 73 Mother Family history of coronary artery disease, Onset Age: 63 Social History Social History Smoking status: Never smoker Second hand tobacco smoke exposure: No Alcohol intake: current Drinks per week: 2 Alcohol use details: socially Substance use: never Substance use type: does not use Do You Feel Safe in your Home?: Yes Lack of Transportation: No Lack of Food: Never True Current Housing: I Have Housing Concerned About Future Housing: No Difficulty Paying Gas/Electric Bills: No Difficulty Paying for Meds: No Currently Unemployed: No Education: Bachelor's Degree Difficulty w/ Childcare or Family Care: No Living arrangements: with family Additional living arrangements comments: Occupation/Education: retired 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 Gender identity (if verbalized by the patient): Female Sexual Orientation (if Verbalized by the Patient): Straight or Heterosexual Spiritual care concerns: No Anes - Eval Final PreProcedure Day of Procedure 02/20/25 07:22 Patient weight: obese Lungs: normal air movement Airway: Mallampati scale class II Neurological: alert and oriented Last oral intake: >/= 8 hours ASA classification: II Emergent: no Anesthetic plan: proceed Anesthesia type and monitoring: general ETT and standard monitoring Results Review: All pre-operative results and documents have been reviewed as part of the pre-operative evaluation. HTN, hx of breast ca, BMI 30. Pt very active w walking 3 x weekly, no cp or sob. Informed Consent: The patient's anesthetic plan and its attendant risks and benefits were discussed with the patient/family/POA. Questions were solicited and answers provided to the satisfaction of the patient/family/POA.
[2025-02-20] MEDS: ceFAZolin 2 GM in SODIUM CHLORIDE 0.9% IV 50 ML 100 ML IVPB (07:45)
[2025-02-20] MEDS: metroNIDAZOLE 500 MG/ISO 100ML 500 MG/100 ML BAG 100 MG IVPB ×2 (07:55→17:01)
--- NOTE | 2025-02-20 08:05 | SUR.OPER ---
When doing the time out stated that she added bilateral oophorectomy to the procedure which was reflected in her H&P update and her and the patient spoke about it and patient and agreed on the procedure, I added the bilateral oophorectomy to the consent and called the patients and me and another nurse verified by phone consent that this is correct.
[2025-02-20] MEDS: BUPIVACAINE/EPINEPHRINE 0.5% 50 ML VIAL 40 ML INFILTRATE (08:25)
--- NOTE | 2025-02-20 08:39 | W.PM.PROC2 ---
Procedure Note - Detailed Date of Procedure 02/20/25 Pre-op Diagnosis uterine prolapse, stress incont Post-op Diagnosis Same Procedure Performed Robotic assisted laparoscopic supracervical hysterectomy with bilateral salpingo-oophorectomy Surgeon Gardenia Mcqueen MD Disability Insurance Hearing Officer Ness Anesthesia General Findings Normal appearing postmenopausal uterus. Normal bilateral fallopian tubes and ovaries. Adhesions from the colon to the left pelvic side wall; taken down without issue. Good hemostasis at end of case. Description of Procedure Farnaz was taken to the operating room where she was placed under general anesthesia without issues. She received 2 g Ancef and 500mg Metronidazole. She was then prepped and draped in the usual sterile fashion in the dorsal lithotomy position with her legs in low Alfa stirrups, her arms tucked at her side, with a strap over her chest. A time-out was performed with both Dr. Hamm and I in the room. Dr. Hamm then scrubbed in and placed the 5 laparoscopic ports. The patient was then placed in steep Trendelenburg, with the legs slightly lowered. Dr. Hamm then docked the robot and placed the instruments intra-abdominally under direct visualization. I then went to the robotic console. I then started my hysterectomy on the right side. The ureter was easily identified transperitoneally and well out of the surgical field. The IP ligament was identified and serially clamped, coagulated, and transected with good hemostasis. The broad ligament was then sequentially clamped, coagulated, and transected working in the direction of the round ligament. The round ligament was clamped, coagulated, and transected. The broad ligament was then further dissected anteriorly and posteriorly skeletonizing the uterine artery. The bladder flap was then developed on the right side and carried around the anteriorly. The uterine artery was then serially clamped and coagulated. Once the vessel was adequately coagulated, it was then transected with good hemostasis. The adhesions from the colon to the pelvic side wall were taken down using the mono-polar scissors without complications. The same procedure was then performed on the left side without complications. All pedicles were found to be hemostatic. The uterus was noted to be devascularized. The bladder flap was verified out of the surgical field and the uterus was transected from the cervix. Good hemostasis was noted. The uterus, bilateral fallopian tubes, and ovaries were placed within a bag. All pedicles were once again examined and found to be hemostatic. Dr. Hamm then took over the robot and continued his case to repair the prolapse. At the end of the case, my EBL was 10cc. Estimated Blood Loss 10 Complications No immediate complications Condition Stable Disposition No change [facility] Billing Surgery - Charge Forward: Surgery Billing
--- NOTE | 2025-02-20 09:40 | S_PTH ---
PATIENT: Farnaz Stoner LOC: [facility] U#:[id number] AGE/SX: 64/F ROOM: RE02/20/[address]: Abhinav Hamm MD : 1960 BED: DIS: 02/21/2025 SPEC #: [id number] RECD: 02/20/25 10:48 STATUS: KEN REQ #: [id number] QUINN: 02/20/25 09:[address]: Gardenia Mcqueen DEPT: [facility] Surgical RECD BY: Karla Hanks ENTERED: 02/20/25 10:48 SP TYPE: Surgical OTHR DR: MD Sebastian Covarrubias MD Tissues: A - Uterus Procedures: Hematoxylin and Eosin Stain Gross and Microscopic Level 5
--- NOTE | 2025-02-20 10:19 | W.PM.PROC2 ---
Procedure Note - Detailed Date of Procedure 02/20/25 Pre-op Diagnosis uterine prolapse, stress incont Post-op Diagnosis Same Procedure Performed Robotic assisted laparoscopic sacral colpopexy Urethral sling Cystoscopy Surgeon Abhinav Hamm MD Anesthesia General Indications A woman with uterine prolapse as well as stress incontinence. She desires surgical correction. She is here for the above. She understands risks of bleeding, infection, diskitis, damage to surrounding organs, bowel injury, bowel obstruction, mesh related complications including exposure and extrusion, postoperative voiding dysfunction including incontinence and retention, need for ancillary procedures, dyspareunia, recurrence of prolapse, and other perioperative intraoperative postoperative complications. She agrees to proceed. Findings See below Description of Procedure She was correctly identified. Informed consent obtained. She from the operating room. She was given general anesthesia. She was given appropriate perioperative antibiotics. She was placed a low lithotomy position. Pressure points were padded. A time-out performed. I marked out the skin 3 fingerbreadths cephalad to the umbilicus. I anesthetized the skin. I incised the skin. I dissected down to the fascia. I grasped the fascia with Ibis clamps. I entered the fascia sharply in a Becerra type technique. I placed sutures for later fascial closure. I placed a midline trocar. I examined the abdomen. There is no sign of any injury. Under direct vision I placed 2 additional trocars in the right upper quadrant and 2 additional trocars the left upper quadrant. She was placed in steep Trendelenburg. The robot was docked. Her product management manager completed their portion of the procedure. Please see that operative report for details. I then sat at the console. The Sizer in the vagina created plane on the anterior and posterior vaginal wall. I took great care not to injure the vagina, bladder, or rectum. I introduced the mesh into the abdomen. I sewed the anterior leaflet of mesh on the anterior vaginal wall. I sewed the posterior leaflet of mesh on the posterior vaginal wall. This was done with several sutures of 2 0 [place]. I reflected the colon laterally. I opened the posterior peritoneum over the sacral promontory. I carried this into the cul-de-sac. I freed up the edges for later retroperitonealization. I located the anterior longitudinal ligament the sacrum. I cleaned off all fatty tissues. I then tensioned my mesh appropriately. I did a vaginal exam the bedside. I assured prolapse reduction without undue tension. I then sewed the proximal leaflet of mesh onto the anterior longitudinal ligament of the sacrum with several sutures of 2 0 [place]. I then used a 2 0 Monocryl to completely and meticulously retroperitonealized all mesh. I allowed the colon to go back to its normal anatomic location. There is no sign of any impingement. The specimen was then removed. All ports removed. Fascia was tied down. Additional sutures were placed to fully close the fascia. Skin was closed with Monocryl and surgical glue. She was repositioned and prepped for urethral sling. I marked out the inner thigh incisions. I anesthetized the skin and made the incisions. I then anesthetized the anterior vaginal wall at the mid urethra. I made a 1 cm incision. I dissected out laterally taking great care not to injure the refilled vaginal wall. I passed the helical trocars. I did this 1st on the left and then on the right. This was done from the thigh incision towards the vaginal incision. Sling was connected to the trocars and brought out the thigh incision. I tensioned the sling appropriately. I cut and the plastic sheaths. I closed the incision with 2 0 Vicryl. I then performed cystoscopy. There was no tumors or surgical artifact. Both ureters were seen to excrete clear yellow urine. There is no surgical artifact in the bladder or urethra. I cut the excess sling material. Close incision with glue. She was awakened and transferred to PACU in stable condition. Implants Sacral colpopexy mesh Urethral sling Estimated Blood Loss 20 Packing No Pathology Other (per SUPERVISOR TELEPHONE INFORMATION) Complications No immediate complications Condition Stable Disposition PACU
--- NOTE | 2025-02-20 11:38 | PC.NURSE ---
This patient, Farnaz Stoner, was received from PACU on 02/20/25 at 1138. Patient/family oriented to unit policies and routines
[2025-02-20] MEDS: KCL 20 MEQ/D5/0.45% SOD CHL 1,000 ML 100 ML IV CONT ×2 (12:23→23:59)
[2025-02-20] MEDS: ACETAMINOPHEN 325 MG TABLET 650 MG PO ×2 (12:27→19:00)
[2025-02-20] MEDS: DOCUSATE SODIUM 100 MG CAPSULE PO (16:15)
[2025-02-20] MEDS: ceFAZolin 1 GM in SODIUM CHLORIDE 0.9% IV 50 ML 100 ML IVPB ×2 (16:16→23:59)
[2025-02-20] MEDS: HYDROcodone/acetaminophen (*CRX) 5-325 MG TABLET 1 TAB PO (16:25)
[2025-02-21] MEDS: metroNIDAZOLE 500 MG/ISO 100ML 500 MG/100 ML BAG 100 MG IVPB (00:45)
[2025-02-21] MEDS: ACETAMINOPHEN 325 MG TABLET 650 MG PO (04:40)
[2025-02-21 04:45] VITALS: BP 135/76; PULSE 82; RESP 16; TEMP 36.7; O2SAT 98
[2025-02-21 04:56] LABS: Hematocrit 35.8 % (37.0-47.0); Hemoglobin 11.6 g/dL (12.0-15.0); Mean Corpuscular HGB Conc 32.4 g/dl (32-36); Mean Corpuscular Hemoglobin 30.7 pg (26-34); Mean Corpuscular Volume 94.7 fl (80-100); Platelet Count Result 139 k/mm3 (150-375); Red Blood Count 3.78 M/mm3 (4.2-5.4); White Blood Count 9.9 K/mm3 (4.5-10.0)
[2025-02-21 05:08] LABS: Anion Gap 4 mmol/L (4-12); Blood Urea Nitrogen 8 mg/dL (7-17); Calcium 8.1 mg/dL (8.4-10.2); Carbon Dioxide 26 mmol/L (22-30); Chloride 105 mmol/L (98-107); Estimated CRCL calculation 74 ml/min; Estimated Glomerular Filt Rate > 60; Glucose 123 mg/dL (65-110); Potassium 3.8 mmol/L (3.4-5.0); Sodium 135 mmol/L (137-145)
--- NOTE | 2025-02-21 07:32 | PM.GYNPNOP ---
IDEA MAN - A/P Assessment and plan (1) S/P laparoscopic hysterectomy: Code(s): Z90.710 - Acquired absence of both cervix and uterus Status: Acute Postoperative Procedures: Procedures Operation Date: 02/20/25 07:30 Actual Procedure Side Surgeon p Robotic Sacrocolpopexy, Urethral Sling Not Applicable Abhinav Hamm MD s Robotic Supracervical Hysterectomy With Bilateral Salpingo-oophorectomy Bilateral Gardenia Mcqueen MD Postoperative day: 1 Postoperative status: doing well Postoperative plan: routine post-op care and discharge Time Spent With Patient Time: Total time spent is greater than 50% in coordination of care (as documented) at patient's floor/unit and/or counseling patient: Time with patient: less than 15 minutes IDEA MAN- PN:Subj Post-Op Subjective Date/time seen: 02/21/25 07:15 Interval history: POD#1 Farnaz reports doing well today. No issues overnight. Her pain is controlled with PO meds. She has tolerated regular diet. She denies any vaginal bleeding. She has voided. She has passed flatus. She has ambulated and denies any symptoms of anemia. Review of Systems Review of Systems: All systems reviewed & are unremarkable except as noted in HPI and below (HPI) Constitutional: Constitutional: Denies chills, Denies fever(s) and Denies headache(s) Eyes: Eyes: Denies change in vision ENT: Denies dizziness and Denies headache(s) Cardiovascular: Cardiovascular: Denies chest pain and Denies rapid heart rate Respiratory: Respiratory: Denies cough Genitourinary: Genitourinary: Denies abnormal vaginal bleeding Neurologic: Denies dizziness and Denies headache(s) Exam Const: General: cooperative, healthy appearing, comfortable and no acute distress Orientation/consciousness: patient oriented x3 Resp: Effort & Inspection: normal respiratory effort Auscultation: clear to auscultation bilaterally Cardio: Rate: regular rate GI: Inspection: normal to inspection and incision ( LSC incisions c/d/i) GI Palp: Yes abdominal tenderness (appropriate) and Yes Soft to palpation Auscultation: normal bowel sounds : Other: normal bleeding on pad Skin: General skin exam: normal color Neuro: General: patient oriented x3 Psych: Appearance: grossly normal Affect: normal affect Attitude: cooperative IDEA MAN - PN: Obj Data Vital Signs Vital Signs: Vital Signs - 24 hr 02/20/25 06:20 02/20/25 10:12 02/20/25 10:25 Temperature 98.8 F 97.1 F L Pulse Rate 68 72 69 Respiratory Rate 16 18 14 Blood Pressure 138/73 115/57 L 132/69 Pulse Oximetry 96 100 99 Oxygen Delivery Room Air Simple Face Mask Simple Face Mask Oxygen Flow Rate 8 8 02/20/25 10:40 02/20/25 10:55 02/20/25 11:05 Temperature 98.4 F Pulse Rate 68 68 72 Respiratory Rate 12 12 12 Blood Pressure 116/64 108/61 114/59 L Pulse Oximetry 94 96 94 Oxygen Delivery Room Air Room Air Room Air Oxygen Flow Rate 02/20/25 11:20 Temperature Pulse Rate 74 Respiratory Rate 12 Blood Pressure 117/59 L Pulse Oximetry 93 Oxygen Delivery Room Air Oxygen Flow Rate Intake/Output Intake/Output: Intake & Output 02/17/25 02/18/25 02/19/25 02/20/25 23:59 23:59 22:59 23:59 Intake Total 150 Output Total 120 Balance 30 Meds/Results Medications: Active Medications Generic Name Dose Route Start Last Admin Trade Name Freq PRN Reason Stop Dose Admin Acetaminophen 650 mg 02/20/25 11:39 02/20/25 12:27 Acetaminophen 325 Mg Tablet PO 650 mg Q4H PRN Administration Mild Pain (1-3) or Fever Hydrocodone Bitart/Acetaminophen 1 tab 02/20/25 11:39 Hydrocodone/Acetaminophen (*Crx) 5-325 Mg Tablet PO Q4H PRN Pain Rated 4-5 Amlodipine Besylate 5 mg 02/20/25 11:39 02/20/25 12:28 Amlodipine Besylate 5 Mg Tablet PO Not Given DAILY STEFIF Cephalexin HCl 500 mg 02/21/25 09:00 Cephalexin 500 Mg Capsule PO QID STEFFI Diphenhydramine HCl 25 mg 02/20/25 11:39 Diphenhydramine Hcl Inj 50 Mg/Ml Vial IV PUSH Q6H PRN Itching Docusate Sodium 100 mg 02/20/25 11:39 Docusate Sodium 100 Mg Capsule PO DAILY [facility] Enoxaparin Sodium 30 mg 02/21/25 09:00 Enoxaparin 30 Mg/0.3 Ml Syringe SUB-Q DAILY [facility] Fentanyl Citrate 25 mcg 02/19/25 10:06 Fentanyl Citrate Inj (*Crx) 100 Mcg/2 Ml Vial IV PUSH Q2M PRN Pain Fluoxetine HCl 10 mg 02/20/25 11:39 02/20/25 12:28 Fluoxetine Hcl 10 Mg Capsule PO Not Given DAILY [facility] Hydroxyzine HCl 25 mg 02/20/25 11:39 Hydroxyzine Hcl 25 Mg Tablet PO TID PRN Anxiety Potassium Chloride/Dextrose/Sod Cl 1,000 mls @ 100 mls/hr 02/20/25 11:39 02/20/25 12:23 Kcl 20 Meq/D5/0.45% Sod Chl IV CONT 100 mls/hr .Q10H STEFFI Administration Cefazolin Sodium 1 gm/ Sodium 50 mls @ 100 mls/hr 02/20/25 16:00 Chloride IVPB 02/21/25 00:29 Q8H STEFFI Metronidazole 500 mg in 100 mls @ 100 mls/hr 02/20/25 16:00 Flagyl 500 Mg/Iso Soln 100 Ml IVPB 02/21/25 09:00 Q8H [facility] Ketorolac Tromethamine 15 mg 02/20/25 11:39 02/20/25 12:26 Ketorolac 15 Mg/Ml Vial (*Bkc) IV PUSH 15 mg Q8H PRN Administration Pain Rated 5 or Less Morphine Sulfate 2 mg 02/20/25 11:39 Morphine Sulfate (*Crx) 4 Mg/Ml Inj IV PUSH Q2H PRN Pain Rated 6 or Greater Ondansetron HCl 4 mg 02/20/25 11:39 Ondansetron Inj 4 Mg/2 Ml Vial IV PUSH Q6H PRN Nausea And Vomiting Tamoxifen Citrate 20 mg 02/21/25 09:00 Tamoxifen Citrate (*Chemo) 10 Mg Tablet PO DAILY [facility] Triamcinolone Acetonide 1 applic 02/20/25 11:39 Triamcinolone Acet 0.1% Cream 15 Gm Tube TOPICAL BID PRN Rash Zolpidem Tartrate 5 mg 02/20/25 11:39 Zolpidem Tartrate (*Crx) 5 Mg Tablet PO HS PRN Insomnia Labs 02/21/25 04:21 02/21/25 04:21
[2025-02-21] MEDS: KETOROLAC 15 MG/ML VIAL (*BKC) IV PUSH (07:48)
[2025-02-21 08:00] VITALS: BP 140/75; PULSE 67; RESP 18; TEMP 37.2; O2SAT 96
[2025-02-21] MEDS: CEPHALEXIN 500 MG CAPSULE PO (09:18)
[2025-02-21] MEDS: DOCUSATE SODIUM 100 MG CAPSULE PO (09:19)
[2025-02-21] MEDS: ENOXAPARIN 30 MG/0.3 ML SYRINGE SUB-Q (09:19)
[2025-02-21] MEDS: TAMOXIFEN CITRATE (*CHEMO) 10 MG TABLET 20 MG PO (09:39)
== END 2025-02-21 09:56 | disposition home or self-care (01) ==
LOC: ANHSURGERY 07:32 → ANHOB2 11:41
PROVIDERS: Obstetrics & Gynecology; PCP Family Medicine; Visit Provider Urology
PROC: (CPT 57425; principal; 2025-02-20 07:30)
PROC: 0UT94ZZ Resection of Uterus, Percutaneous Endoscopic Approach (ICD-10-PCS; CPT 57425; 2025-02-20 07:30)
DX: N39.3 Stress incontinence (female) (male) (principal); N81.4 Uterovaginal prolapse, unspecified; N83.8 Other noninflammatory disorders of ovary, fallopian tube and broad ligament; N83.292 Other ovarian cyst, left side; N83.291 Other ovarian cyst, right side; N73.6 Female pelvic peritoneal adhesions (postinfective); E55.9 Vitamin D deficiency, unspecified; I10 Essential (primary) hypertension; F33.9 Major depressive disorder, recurrent, unspecified; F41.8 Other specified anxiety disorders; M81.0 Age-related osteoporosis without current pathological fracture; E53.8 Deficiency of other specified B group vitamins; G89.29 Other chronic pain; M54.2 Cervicalgia; M54.9 Dorsalgia, unspecified; L30.9 Dermatitis, unspecified; E66.9 Obesity, unspecified; Z68.30 Body mass index [BMI] 30.0-30.9, adult; Z79.83 Long term (current) use of bisphosphonates; Z79.810 Long term (current) use of selective estrogen receptor modulators (SERMs); Z98.890 Other specified postprocedural states; Z90.49 Acquired absence of other specified parts of digestive tract; Z86.0100 Personal history of colon polyps, unspecified; Z85.3 Personal history of malignant neoplasm of breast; Z80.1 Family history of malignant neoplasm of trachea, bronchus and lung; Z82.49 Family history of ischemic heart disease and other diseases of the circulatory system
CPT/HCPCS: 58542; 57425; S2900 ×2; 36415; 80048; 85027; 88307; 99199; J0690; A9270; C1771; C1781; J1100; J1650; J1836; J1885; J2003; J2250; J2270; J2405; J2704; J3010; J3480; J7120